=== PATIENT | female | born 1930 | race Caucasian/White ===

== ENCOUNTER → 2019-04-14 | Outpatient (CLI) | payer MEDICARE ==
[2019-04-14 18:24] LABS: BILIRUBIN,URINE NEGATIVE (NEGATIVE); CLARITY,URINE CLEAR; COLOR,URINE YELLOW; GLUCOSE, URINE (UA) NEGATIVE (NEGATIVE); KETONES,URINE NEGATIVE (NEGATIVE); LEUKOCYTE ESTERASE ,URINE 1+ (NEGATIVE); NITRITE,URINE NEGATIVE (NEGATIVE); PH,URINE 5.5 (5-9); PROTEIN,URINE NEGATIVE (NEGATIVE)
[2019-04-14 18:25] LABS: BACTERIA,URINE TRACE /HPF
== END ==
LOC: LAB FS 16:58
PROVIDERS: ATTEND Family Medicine
DX: R39.15 Urgency of urination (principal); R30.0 Dysuria; R35.0 Frequency of micturition
CPT/HCPCS: 81000; 87088

== ENCOUNTER 2019-10-19 16:02 | Observation (INO) | payer MEDICARE ==
[2019-10-19] MEDS ORDERED: ASPIRIN 325 MG (5 GR) TABLET PO ONE (16:15)
[2019-10-19 16:26] LABS: BASOPHILS % (AUTO) 0 % (0-10); EOSINOPHILS % (AUTO) 2 % (0-10); HEMATOCRIT 41 % (35-52); HEMOGLOBIN 13.9 G/DL (11.5-16.0); LYMPHOCYTES % (AUTO) 28 % (12-44); MEAN CORPUSCULAR HEMOGLOBIN 28 PG (25-34); MEAN CORPUSCULAR HGB CONC 34 G/DL (32-36); MEAN CORPUSCULAR VOLUME 82 FL (80-99); MEAN PLATELET VOLUME 10.8 FL (7.4-10.4); MONOCYTES % (AUTO) 8 % (0-12); NEUTROPHILS % (AUTO) 62 % (42-75); PLATELET COUNT 233 10^3/uL (130-400); WHITE BLOOD COUNT 9.3 10^3/uL (4.3-11.0)
[2019-10-19 16:27] LABS: EOSINOPHILS # (AUTO) 0.2 10^3/uL (0.0-0.3); LYMPHOCYTES # (AUTO) 2.6 X 10^3 (1.0-4.0); MONOCYTES # (AUTO) 0.7 X 10^3 (0.0-1.0); NEUTROPHILS # (AUTO) 5.7 X 10^3 (1.8-7.8)
[2019-10-19 16:47] LABS: FIBRIN DEGRADATION PRODUCTS 0.54 UG/ML (0.00-0.49); INR 0.9 (0.8-1.4); PROTHROMBIN TIME PATIENT 12.6 SEC (12.2-14.7)
[2019-10-19 17:03] LABS: ALANINE AMINOTRANSFERASE 22 U/L (0-55); ALBUMIN 3.9 GM/DL (3.2-4.5); ALKALINE PHOSPHATASE 123 U/L (40-136); BILIRUBIN,TOTAL 0.4 MG/DL (0.1-1.0); BUN/CREATININE RATIO 14; CALCIUM 9.5 MG/DL (8.5-10.1); CARBON DIOXIDE 26 MMOL/L (21-32); CHLORIDE 92 MMOL/L (98-107); CREATININE SERUM 1.25 MG/DL (0.60-1.30); GFR ESTIMATED 41; GLUCOSE 130 MG/DL (70-105); POTASSIUM 3.6 MMOL/L (3.6-5.0); SODIUM 133 MMOL/L (135-145); TOTAL PROTEIN 7.4 GM/DL (6.4-8.2)
[2019-10-19 17:04] LABS: LIPASE 59 U/L (8-78)
--- NOTE | 2019-10-19 17:08 | Diagnostic Imaging Report ---
EXAMINATION: Chest 1 view. HISTORY: Chest pain. COMPARISON: None available. FINDINGS: No focal consolidation is seen. No large pleural effusion or pneumothorax is seen. The cardiomediastinal silhouette is normal in size and contour. No acute osseous abnormality is seen. IMPRESSION: No acute pleuroparenchymal process. Dictated by: Dictated on workstation # [id number]
--- NOTE | 2019-10-19 18:37 | ED Chest Pain ---
General Chief Complaint: Chest Pain Stated Complaint: CHEST PAIN Nursing Triage Note: Has had several episodes of chest pain that started yesterday. Last pain was a couple of hours ago. Now feels like her whole body is "on fire." Nursing Sepsis Screen: No Definite Risk History of Present Illness Date Seen by Provider: Oct 19, 2019 Time Seen by Provider: 16:00 Initial Comments The patient is an 89-year-old female with a history of hypertension, hyperlipidemia, chronic vertigo, no known history of coronary artery disease. She presents for evaluation of chest discomfort with onset yesterday during the afternoon. Yesterday she reports she had a relatively transient episode of severe chest discomfort which was sharp and burning and localized underneath her bilateral breasts. She states this went away after about a half an hour at most. Pain was nonexertional and nonpleuritic and nothing seemed to bring it on or make it better or worse. Associated nausea. No associated fevers, upper respiratory congestion/rhinorrhea, cough, shortness of breath, abdominal pain, flank pain, back pain, dysuria or hematuria, changes in bowel habits. Patient had a recurrent episode of the same chest discomfort this afternoon and ending about 2 hours prior to arrival. At the present time she is chest pain- free. She does note a mild generalized skin "burning" sensation affecting her whole body that she states she had transiently yesterday as well. Patient reports that symptoms occur in the setting of having recently been switched from clindamycin (for what sounds like mild gingival infection after a right maxillary tooth extraction about a week ago) to cefdinir. Patient took only 2 doses of cefdinir yesterday and has not taken any today; she was concerned that it could've caused her chest pain so didn't take it today. Patient is alert and oriented and pleasantly and appropriately interactive and in no acute distress upon initial assessment. The emergency department. Vital signs are appropriate here. Allergies and Home Medications Allergies Coded Allergies: Iodinated Contrast Media (Verified Allergy, Unknown, 10/19/19) Penicillins (Verified Allergy, Unknown, 10/19/19) morphine (Verified Allergy, Unknown, 10/19/19) Patient Home Medication List Home Medication List Reviewed: Yes Review of Systems Review of Systems Constitutional: see HPI All Other Systems Reviewed Negative Unless Noted: Yes (Negative excepted noted.) Past Lvbhqvh-Rvuyss-Ayxxjx Hx Past Med/Social Hx: Reviewed Nursing Past Med/Soc Hx Patient Social History Recent Foreign Travel: No Contact w/Someone Who Travel: No Recent Infectious Disease Expo: No Family Medical History Reviewed Nursing Family Hx Physical Exam Vital Signs Vital Signs - First Documented 10/19/19 16:12 Temp 36.8 Pulse 78 Resp 18 B/P (MAP) 161/75 (103) Pulse Ox 96 Capillary Refill : Less Than 3 Seconds Height, Weight, BMI Height: '" Weight: lbs. oz. kg; BMI Method: General Appearance: No Apparent Distress Other comments This is an elderly female appearing nontoxic and in no acute distress. Head is normocephalic and atraumatic. Neck is supple and nontender. Oropharynx is moist. Lungs are clear to auscultation at all stations. There is a normal S1 and S2 without rubs or gallops and capillary refill is appropriate, less than 2 seconds globally. Abdomen is soft, nontender and nondistended. Skin is warm and dry without cyanosis, clubbing or edema. Psychiatrically, the patient Imitrex appropriate mood and affect and is alert. Neurologically, cranial nerves II through XII are intact and no lateralizing deficits are noted. Speech is normal. Language is normal. Coordination is normal. There is no dysmetria with finger to nose or mbcj-es-uojy bilaterally. Strength is 5 out of 5 in all joints of bilateral upper and lower extremity. Sensation is intact to light touch in bilateral upper and lower extremities. Ambulation testing is deferred. The patient is alert and oriented 4. The lateral lower extremities without calf pain or swelling bilaterally and without peripheral edema. Bilateral lower extremities are neurovascularly intact distally with strength 5 out of 5, sensation intact to light touch in all nerve distribution, DP and PT pulses 2+, capillary refill less than 2 seconds, feet warm and well-perfused. Ulcers are equal to bilateral upper and lower extremities. Progress/Results/Core Measures Results/Orders Lab Results Laboratory Tests Test 10/19/19 16:15 Range/Units White Blood Count 9.3 4.3-11.0 10^3/uL Red Blood Count 5.05 4.35-5.85 10^6/uL Hemoglobin 13.9 11.5-16.0 G/DL Hematocrit 41 35-52 % Mean Corpuscular Volume 82 80-99 FL Mean Corpuscular Hemoglobin 28 25-34 PG Mean Corpuscular Hemoglobin Concent 34 32-36 G/DL Red Cell Distribution Width 12.5 10.0-14.5 % Platelet Count 233 130-400 10^3/uL Mean Platelet Volume 10.8 H 7.4-10.4 FL Neutrophils (%) (Auto) 62 42-75 % Lymphocytes (%) (Auto) 28 12-44 % Monocytes (%) (Auto) 8 0-12 % Eosinophils (%) (Auto) 2 0-10 % Basophils (%) (Auto) 0 0-10 % Neutrophils # (Auto) 5.7 1.8-7.8 X 10^3 Lymphocytes # (Auto) 2.6 1.0-4.0 X 10^3 Monocytes # (Auto) 0.7 0.0-1.0 X 10^3 Eosinophils # (Auto) 0.2 0.0-0.3 10^3/uL Basophils # (Auto) 0.0 0.0-0.1 10^3/uL Prothrombin Time 12.6 12.2-14.7 SEC INR Comment 0.9 0.8-1.4 Activated Partial Thromboplast Time 24 24-35 SEC D-Dimer 0.54 H 0.00-0.49 UG/ML Sodium Level 133 L 135-145 MMOL/L Potassium Level 3.6 3.6-5.0 MMOL/L Chloride Level 92 L 98-107 MMOL/L Carbon Dioxide Level 26 21-32 MMOL/L Anion Gap 15 H 5-14 MMOL/L Blood Urea Nitrogen 17 7-18 MG/DL Creatinine 1.25 0.60-1.30 MG/DL Estimat Glomerular Filtration Rate 41 BUN/Creatinine Ratio 14 Glucose Level 130 H 70-105 MG/DL Calcium Level 9.5 8.5-10.1 MG/DL Corrected Calcium 9.6 8.5-10.1 MG/DL Total Bilirubin 0.4 0.1-1.0 MG/DL Aspartate Amino Transf (AST/SGOT) 29 5-34 U/L Alanine Aminotransferase (ALT/SGPT) 22 0-55 U/L Alkaline Phosphatase 123 40-136 U/L Troponin I < 0.30 <0.30 NG/ML Pro-B-Type Natriuretic Peptide 79.3 H <75.0 PG/ML Total Protein 7.4 6.4-8.2 GM/DL Albumin 3.9 3.2-4.5 GM/DL Lipase 59 8-78 U/L My Orders Orders - LASHAWN ELIAS MD Cbc With Automated Diff (10/19/19 16:14) Comprehensive Metabolic Panel (10/19/19 16:14) Lipase (10/19/19 16:14) Troponin I Fs (10/19/19 16:14) Ekg Tracing (10/19/19 16:14) Chest 1 View Ap/Pa Only (10/19/19 16:14) Protime With Inr (10/19/19 16:14) Partial Thromboplastin Time (10/19/19 16:14) Fibrin Degradation Products (10/19/19 16:14) Probnp Fs (10/19/19 16:14) Aspirin Tablet (Aspirin Tablet) (10/19/19 16:15) Vital Signs/I&O 10/19/19 16:12 Temp 36.8 Pulse 78 Resp 18 B/P (MAP) 161/75 (103) Pulse Ox 96 Blood Pressure Mean: 103 Progress Progress Note : Progress Note Workup unremarkable and reassuring aside from mildly elevated d-dimer. Patient has what is evidently a severe iodinated contrast allergy and cannot have a CT angiogram to rule out pulmonary embolism. Will need a V/Q scan during her admission. Given recurrent episodes of atypical rather severe chest discomfort over the last day, as well as prolonged QT interval noted on EKG, we'll bring in for observation, troponin trending, attention from cardiology and further care. Recommend avoiding QT prolonging therapies. Case is discussed with Dr. Zuniga who graciously accepts for observation admission. Stable for transfer. Comment Sinus rhythm, no acute ST elevation or depression, rate 81, OH 161, QRS 98, QTC 556, EP interpretation. Prolonged QT interval; unclear if this is acute. Diagnostic Imaging Comments CHEST 1 VIEW AP/PA ONLY EXAMINATION: Chest 1 view. HISTORY: Chest pain. COMPARISON: None available. FINDINGS: No focal consolidation is seen. No large pleural effusion or pneumothorax is seen. The cardiomediastinal silhouette is normal in size and contour. No acute osseous abnormality is seen. IMPRESSION: No acute pleuroparenchymal process. Dictated by: Dictated on workstation # [id number] Departure Impression Primary Impression: Other chest pain Additional Impressions: Elevated d-dimer Prolonged Q-T interval on ECG Disposition: ADMITTED INPATIENT Condition: Stable Departure-Patient Inst. Referrals: LOGAN HIGGINS MD (PCP/Family) Primary Care Physician LASHAWN ELIAS MD Oct 19, 2019 18:37
[2019-10-19] MEDS ORDERED: NS IV 1000 ML 1,000 ML IV SCH (18:59)
--- NOTE | 2019-10-19 19:46 | Diagnostic Imaging Report ---
PROCEDURE: CT head without contrast. TECHNIQUE: Multiple contiguous axial images were obtained through the brain without the use of intravenous contrast. Auto Exposure Controls were utilized during the CT exam to meet ALARA standards for radiation dose reduction. INDICATION: Paresthesia, near syncope. COMPARISON: None available. FINDINGS: No hyperdense hemorrhage or space-occupying mass. No hydrocephalus or midline shift. Akbar-white matter differentiation is well-preserved. Pituitary and pineal regions are normal in appearance. No skull fracture. Paranasal sinuses and mastoid air cells are clear. Bilateral cataract surgery. IMPRESSION: No acute intracranial process by CT. Dictated by: Dictated on workstation # [id number]
[2019-10-19 21:12] VITALS: BP 159/83
[2019-10-19] MEDS ORDERED: ACETAMINOPHEN 325 MG TABLET PO PRN (22:30)
[2019-10-19] MEDS ORDERED: diphenhydrAMINE 25 MG TAB (BENADRYL) PO ONE (23:09)
[2019-10-19] MEDS: ENOXAPARIN 40 MG/0.4 ML (LOVENOX) SYR SC SCH (23:11)
[2019-10-19] MEDS ORDERED: diphenhydrAMINE 25 MG TAB (BENADRYL) PO PRN (23:15)
[2019-10-20] VITALS (7 sets, daily range): BP systolic 119–159; BP diastolic 68–82
[2019-10-20 01:11] LABS: CLARITY,URINE CLEAR; COLOR,URINE YELLOW
[2019-10-20 01:12] LABS: BACTERIA,URINE TRACE /HPF; BILIRUBIN,URINE NE (NEGATIVE); GLUCOSE, URINE (UA) NEGATIVE (NEGATIVE); KETONES,URINE NEGATIVE (NEGATIVE); LEUKOCYTE ESTERASE ,URINE 1+ (NEGATIVE); NITRITE,URINE NEGATIVE (NEGATIVE); PROTEIN,URINE NEGATIVE (NEGATIVE); WBC,URINE 0-2 /HPF
[2019-10-20 03:32] LABS: BASOPHILS % (AUTO) 1 % (0-10); EOSINOPHILS # (AUTO) 0.3 10^3/uL (0.0-0.3); EOSINOPHILS % (AUTO) 4 % (0-10); HEMATOCRIT 37 % (35-52); HEMOGLOBIN 12.4 G/DL (11.5-16.0); LYMPHOCYTES # (AUTO) 3.1 X 10^3 (1.0-4.0); LYMPHOCYTES % (AUTO) 36 % (12-44); MEAN CORPUSCULAR HEMOGLOBIN 28 PG (25-34); MEAN CORPUSCULAR HGB CONC 34 G/DL (32-36); MEAN CORPUSCULAR VOLUME 82 FL (80-99); MEAN PLATELET VOLUME 10.7 FL (7.4-10.4); MONOCYTES # (AUTO) 0.8 X 10^3 (0.0-1.0); MONOCYTES % (AUTO) 9 % (0-12); NEUTROPHILS # (AUTO) 4.4 X 10^3 (1.8-7.8); NEUTROPHILS % (AUTO) 51 % (42-75); PLATELET COUNT 225 10^3/uL (130-400); WHITE BLOOD COUNT 8.7 10^3/uL (4.3-11.0)
[2019-10-20 03:41] LABS: ALBUMIN 3.2 GM/DL (3.2-4.5); CHLORIDE 95 MMOL/L (98-107); POTASSIUM 3.3 MMOL/L (3.6-5.0); SODIUM 130 MMOL/L (135-145)
[2019-10-20 03:42] LABS: CALCIUM 8.4 MG/DL (8.5-10.1)
[2019-10-20 03:43] LABS: GLUCOSE 106 MG/DL (70-105); TOTAL PROTEIN 6.1 GM/DL (6.4-8.2)
[2019-10-20 03:45] LABS: BILIRUBIN,TOTAL 0.6 MG/DL (0.1-1.0); CARBON DIOXIDE 25 MMOL/L (21-32)
[2019-10-20 03:47] LABS: ALKALINE PHOSPHATASE 86 U/L (40-136); CREATININE SERUM 1.05 MG/DL (0.60-1.30); GFR ESTIMATED 50
[2019-10-20 03:48] LABS: BUN/CREATININE RATIO 13
[2019-10-20 03:50] LABS: ALANINE AMINOTRANSFERASE 19 U/L (0-55)
--- NOTE | 2019-10-20 08:59 | Diagnostic Imaging Report ---
INDICATION: Chest pain. Comparison made with chest x-ray from 10/19/2019. TECHNIQUE: Acquisitions were acquired of the lungs after administration of 5.13 mCi of technetium 99m MAA. FINDINGS: There is homogeneous uptake of isotope throughout the lungs. There are no subsegmental or segmental perfusion defects appreciated to suggest pulmonary embolism. IMPRESSION: Low probability for pulmonary embolism. Dictated by: Dictated on workstation # [id number]
[2019-10-20] MEDS: MICONAZOLE 2% POWDER (DESENEX AF) 90 GM TOP SCH ×2 (10:07→23:25)
--- NOTE | 2019-10-20 10:44 | History & Physical-Hospitalist ---
History of Present Illness HPI/Chief Complaint CC: Chest pain with dyspnea and elevated d-dimer HPI: This is an 89yoWF Assisted living patient of Dr Neal who presented to the [facility] ER with chest pain and dyspnea and was found to have elevated d-dimer in need of cardiac risk assessment. VQ scan performed to r/o PE due to iodine allergy was negative this morning. She reports she"moore all over her body" and reports a 15 year struggle with vertigo after she fainted and was sent to for a full cardiac w/u and vertigo was the dx. Patient reports she has feeling "stressed" since moving into [place] 03/2019 while her who had a CVA moved into [facility]. 2 weeks ago she had a tooth problem which required 2 rounds of abx and has felt badly since that time. Coming to the hospital has been the first time she has left the facility due to lockdown for 5 months. Source: patient, RN/MD Exam Limitations: clinical condition Date Seen 10/20/19 Time Seen by a Provider: 11:00 Attending Physician Eli Zuniga MD PCP Annalisa Neal MD Referring Physician Date of Admission Oct 19, 2019 at 20:45 Home Medications & Allergies Home Medications Reviewed patient Home Medication Reconciliation performed by pharmacy medication reconciliations regulatory and compliance technician and/or nursing. Patients Allergies have been reviewed. Allergies Allergies Coded Allergies Iodinated Contrast Media (Verified Allergy, Unknown, 10/19/19) Penicillins (Verified Allergy, Unknown, 10/19/19) morphine (Verified Allergy, Unknown, 10/19/19) Past Bikyvjq-Emwjax-Srtqnc Hx Past Med/Social Hx: Reviewed Nursing Past Med/Soc Hx, Reviewed and Corrections made Patient Social History Marrital Status: Employed/Student: retired Alcohol Use: Denies Use Recreational Drug Use: No Smoking Status: Never a Smoker 2nd Hand Smoke Exposure: No Recent Foreign Travel: No Contact w/other who traveled: No Recent Infectious Disease Expo: No Past Medical History Cardiac: High Cholesterol, Hypertension chronic vertigo 15 yrs OAB Musculoskeletal: Arthritis Family History Reviewed Nursing Family Hx Review of Systems Constitutional: see HPI, dizziness, malaise, weakness Cardiovascular: chest pain Skin: other (burning) Physical Exam Physical Exam Vital Signs Vital Signs - First Documented 10/19/19 10/19/19 16:12 21:12 Temp 36.8 Pulse 78 Resp 18 B/P (MAP) 161/75 (103) Pulse Ox 96 O2 Delivery Room Air Capillary Refill : Less Than 3 SecondsLess Than 3 Seconds Height, Weight, BMI Height: '" Weight: lbs. oz. kg; BMI Method: General Appearance: No Apparent Distress, WD/WN, Chronically ill Eyes: Right Eye Normal Inspection, Right Eye PERRL HEENT: PERRL/EOMI, Normal ENT Inspection, Pharynx Normal, Moist Mucous Membranes Neck: Full Range of Motion, Normal Inspection, Non Tender Respiratory: Chest Non Tender, Lungs Clear, Normal Breath Sounds, No Accessory Muscle Use, No Respiratory Distress Cardiovascular: Regular Rate, Rhythm, No Edema, No Gallop, No JVD, No Murmur, Normal Peripheral Pulses Gastrointestinal: Normal Bowel Sounds, No Organomegaly, No Pulsatile Mass, Non Tender, Soft Back: Normal Inspection, No CVA Tenderness, No Vertebral Tenderness Extremity: Normal Capillary Refill, Normal Inspection, Normal Range of Motion, Non Tender, No Calf Tenderness, No Pedal Edema Neurologic/Psychiatric: Alert, Oriented x3, No Motor/Sensory Deficits, Normal Mood/Affect Skin: Normal Color, Warm/Dry Lymphatic: No Adenopathy Results Results/Procedures Labs Laboratory Tests 10/19/19 16:15 10/20/19 03:20 Patient resulted labs reviewed. Assessment/Plan Admission Diagnosis Assessment: Chest pain normal troponins Elevated d-dimer with dyspnea but VQ scan negative for PE 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 HTN HLP Generalized weakness with "burning all over her body" Plan: Supportive care PT OT Cardiology appreciated Admission Status: Observation Diagnosis/Problems Diagnosis/Problems (1) Dyspnea (2) Elevated d-dimer Status: Acute (3) Other chest pain Status: Acute (4) Prolonged Q-T interval on ECG Status: Acute Clinical Quality Measures DVT/VTE Risk/Contraindication: Risk Factor Score Per Nursin RFS Level Per Nursing on Admit: 3=High JEN OCAMPO DO Oct 20, 2019 10:43
[2019-10-20] MEDS ORDERED: CALCIUM CARBONATE 500 MG (TUMS) TAB.CHEW PO PRN (12:45)
[2019-10-20] MEDS ORDERED: OXYB5TAB13 PO (12:45)
[2019-10-20] MEDS ORDERED: SUMA50TA2 PO (12:45)
[2019-10-20] MEDS ORDERED: APAP 300 MG/CODEINE 30 MG (TYLENOL #3) TAB PO PRN (12:45)
[2019-10-20] MEDS ORDERED: DOCUSATE SODIUM 100 MG (COLACE) CAP PO PRN (12:45)
[2019-10-20] MEDS ORDERED: MECLIZINE 25 MG (ANTIVERT) TAB PO PRN (12:45)
[2019-10-20] MEDS ORDERED: HYDROcodone/APAP 5 MG/325 MG (LORTAB) TAB PO PRN (12:45)
[2019-10-20] MEDS ORDERED: BISACODYL 10 MG SUPP (DULCOLAX) PR PRN (12:45)
[2019-10-20] MEDS ORDERED: DIAZ5TAB49 PO (12:45)
[2019-10-20] MEDS ORDERED: ONDANSETRON 4 MG/2 ML (SDV) Z0FRAN IVP PRN (12:45)
[2019-10-20] MEDS ORDERED: MELATONIN 3 MG TABLET PO PRN (12:45)
[2019-10-20] MEDS ORDERED: ALPRAZolam 0.25 MG (XANAX) TAB PO PRN (12:45)
[2019-10-20] MEDS ORDERED: ONDANSETRON 4 MG (ZOFRAN) ORAL DISSOLVE TAB PO PRN (12:45)
[2019-10-20] MEDS ORDERED: DICY10CA12 PO (12:45)
[2019-10-20] MEDS ORDERED: ATOR40TA70 PO (12:45)
--- NOTE | 2019-10-20 12:55 | NUR ---
DR LACY NOTIFIED THIS NURSE PT CAN GO TO THE FOURTH FLOOR. ALSO, PT WILL GET A STRESS TEST TOMORROW. THIS NURSE NOTIFIED HOUSE SUPP.
[2019-10-20] MEDS ORDERED: DICYCLOMINE 10 MG (BENTYL) CAP PO PRN (13:00)
[2019-10-20] MEDS ORDERED: SUMAtriptan 50 MG (IMITREX) TAB PO PRN (13:00)
--- NOTE | 2019-10-20 13:51 | Physical Therapy Evaluation ---
PT Evaluation-General Medical Diagnosis Admission Date Oct 19, 2019 at 20:45 Medical Diagnosis: chest pain Onset Date: Oct 17, 2019 Therapy Diagnosis Therapy Diagnosis: impaired mobility, endurance, strength, balance Precautions Precautions/Isolations: Fall Prevention, Standard Precautions Referral Physician: Dang Hinds Medical History Pertinent Medical History: CAD, HTN Additional Medical History hyperlipidemia, chronic vertigo Social History Home: Assisted Living Current Living Status: Alone Prior Prior Level of Function SCALE: Activities may be completed with or without assistive devices. 5-Mlychnaeff-maivsth completes the activity by him/herself with no assistance from a helper. 5-Set-up or Clean-up Assistance-helper sets up or cleans up; patient completes activity. [place] assists only prior to or following the activity. 4-Supervision or Touching Assistance-helper provides verbal cues and/or touching/steadying and/or contact guard assistance as patient completes activity. Assistance may be provided throughout the activity or intermittently. 3-Partial/Moderate Assistance-helper does LESS THAN HALF the effort. [place] lifts, holds or supports trunk or limbs, but provides less than half the effort. 2-Substantial/Maximal Assistance-helper does MORE THAN HALF the effort. [place] lifts or holds trunk or limbs and provides more than half the effort. 7-Squpgvnhd-ugnwyd does ALL the effort. Patient does none of the effort to complete the activity. Or, the assistance of 2 or more helpers is required for the patient to complete the activity. If activity was not attempted, code reason: 7-Patient Refused. 9-Not Applicable-not attempted and the patient did not perform the activity before the current illness, exacerbation or injury. 10-Not Attempted due to Environmental Limitations-(lack of equipment, weather restraints, etc.). 88-Not Attempted due to Medical Conditions or Safety Concerns. Bed Mobility: 6 Transfers (B,C,W/C): 6 Gait: 6 Indoor Mobility (Ambulation): Independent Patient has chronic vertigo, has had it for years but has gotten worse lately and she has been using a rolling walker due to this. PT Evaluation-Current Subjective Patient in bed pre tx, agrees to PT, has no pain but states she has "burning" all over her body. Patient has chronic vertigo and has had it for years but it has gotten worse lately. Pt/Family Goals to be independent at home Objective Patient Orientation: Person, Place, Situation ROM/Strength ROM Lower Extremities WNL except slightly limited knee extension bilaterally Strength Lower Extremities LLE (hip flexion 3-/5, knee flexion 4/5, knee extension 3+/5, dorsiflexion 3/5), RLE (hip flexion 3-/5, knee flexion 4/5, knee extension 3+/5, dorsiflexion 4/5) Sensory Hearing: Functional Sensation Right Lower Extremit: Intact Sensation Left Lower Extremity: Intact Transfers Roll Left to Right (QC): 6 Sit to Lying (QC): 6 Lying to Sitting/Side of Bed(Q: 6 Sit to Stand (QC): 4 Patient has increased dizziness with supine to sit and sit to stand. After sitting for about 30 seconds she can stand. She stood for about 30 seconds and tried to take a step forward but states she cant do it because of her vertigo and needs to sit back down. Patient then layed back down and performed supine exercises. Balance Sitting Static: Normal Sitting Dynamic: Normal Standing Static: Fair Treatment supine BLE exercises x20 (AP, QS, HS), patient instructed to perform these exercises several times a day. Assessment/Needs Patient has impaired mobility, strength, endurance, balance. she was not able to ambulate due to her vertigo Rehab Potential: Guarded PT [facility] Goals [facility] Goals PT [facility] Goals Time Frame: Oct 27, 2019 Roll Left & Right (QC): 6 Sit to Lying (QC): 6 Lying-Sitting on Side/Bed(QC): 6 Sit to Stand (QC): 6 Chair/Mxl-fx-Ywfcm Xfer(QC): 6 Toilet Transfer (QC): 6 Walk 10 feet (QC): 4 Walk 50ft with 2 Turns (QC): 4 PT Plan Problem List Problem List: Activity Tolerance, Functional Strength, Safety, Balance, Gait, Transfer, Bed Mobility Treatment/Plan Treatment Plan: Continue Plan of Care Treatment Plan: Bed Mobility, Education, Functional Activity Pasquale, Functional Strength, Gait, Safety, Therapeutic Exercise, Transfers Treatment Duration: Oct 27, 2019 Frequency: 6 times per week Estimated Hrs Per Day: .25 hour per day Patient and/or Family Agrees t: Yes Safety Risks/Education Patient Education: Transfer Techniques, Correct Positioning, Safety Issues Teaching Recipient: Patient Teaching Methods: Demonstration, Discussion Response to Teaching: Reinforcement Needed Discharge Recommendations Plan Patient will perform bed mobility and transfer training, balance and endurance training, functional strengthening, gait training, and education to improve functional mobility and independence at home. Therapy Discharge Recommendati: Assisted Living, Home & Family Time/GCodes Time In: 1323 Time Out: 1340 Total Billed Treatment Time: 17 Total Billed Treatment 1 visit LY 17' ADRIANA MACHADO PT Oct 20, 2019 13:51
[2019-10-20] MEDS: DIAZEPAM 5 MG (VALIUM) TABLET PO SCH ×2 (13:54→20:13)
[2019-10-20] MEDS ORDERED: ASPI-999 PO (14:22)
[2019-10-20] MEDS ORDERED: CALC500T47 PO (14:33)
[2019-10-20] MEDS ORDERED: MAGN100T5 PO (14:33)
[2019-10-20] MEDS ORDERED: HYDR50TA3 PO (14:42)
[2019-10-20] MEDS ORDERED: ONDN4T PO (14:57)
[2019-10-20] MEDS ORDERED: POTA20TA15 PO (14:57)
[2019-10-20] MEDS ORDERED: ZINC50TA51 PO (14:57)
[2019-10-20] MEDS ORDERED: OMEP20CA18 PO (14:57)
--- NOTE | 2019-10-20 15:00 | Consultation-Cardiology ---
HPI-Cardiology Cardiology Consultation: Date of Consultation 10/20/19 Date of Admission Attending Physician Eli Zuniga MD Admitting Physician Annalisa Neal MD Consulting Physician Dl TURNER MD HPI: Time Seen by a Provider: 12:30 Chief Complaint: Chest discomfort This is a 89-year-old lady with history of hypertension, hyperlipidemia. No other known medical or cardiac history. She presents with chest pain. Initially she had severe chest pain with burning sensation. Lasted for 30 minutes. Associated with nausea but no vomiting. Has been having recurrent episodes of burning sensation/chest discomfort. She denies active smoking. Mother had a stroke, father had congestive heart failure. Review of Systems-Cardiology Review of Systems Constitutional: As described under HPI; No As described under HPI, No no symptoms reported, No chills, No fever, No lightheadedness Eyes: No As described under HPI, No no symptoms reported, No blindness, No blurred vision, No contact lenses, No drainage, No decreased acuity, No foreign body sensation, No pain, No vision change Ears/Nose/Throat: No As described under HPI, No no symptoms reported, No chronic hearing loss, No ear discharge, No ear pain, No nasal drainage, No ulcerations Respiratory: No no symptoms reported; As described under HPI; No As described under HPI, No cough, No orthopnea, No shortness of breath, No SOB with excertion Cardiovascular: No no symptoms reported; As described under HPI; No As desc ribed under HPI; chest pain; No edema, No irregular heart rate, No lightheadedness, No palpitations Gastrointestinal: No no symptoms reported, No As described under HPI, No abdomen distended, No abdominal pain, No blood streaked bowels, No constipation, No diarrhea, No nausea, No vomiting, No stool coloration changes Genitourinary: No As described under HPI, No burning, No dysuria, No discharge, No frequency, No flank pain, No hematuria, No urgency : Yes : No Skin: No rash, No skin related problems, No ulcerations Psychiatric/Neurological: No anxiety, No depression, No seizure, No focal weakness, No syncope Hematologic: No bleeding abnormalities All Other Systems Reviewed Negative Unless Noted: Yes (Negative excepted noted.) OMC-Ligwjm-Fozedx Hx Patient Social History Alcohol Use: Denies Use Recreational Drug Use: No Smoking Status: Never a Smoker 2nd Hand Smoke Exposure: No Recent Foreign Travel: No Recent Infectious Disease Expo: No Past Medical History PMH As described under Assessment. Allergies and Home Medications Allergies Coded Allergies: Iodinated Contrast Media (Verified Allergy, Unknown, 10/19/19) Penicillins (Verified Allergy, Unknown, 10/19/19) morphine (Verified Allergy, Unknown, 10/19/19) Home Medications Aspirin 81 Mg Tab.chew, 81 MG PO BID, (Reported) Atorvastatin Calcium 40 Mg Tablet, 40 MG PO DAILY, (Reported) Calcium Carbonate 200 Mg Tab.chew, 200 MG PO PRN, (Reported) Diazepam 5 Mg Tablet, 5 MG PO Q6H, (Reported) Dicyclomine HCl 10 Mg Capsule, 10 MG PO TID PRN for CRAMPS, (Reported) Hydrochlorothiazide 50 Mg Tablet, 75 MG PO DAILY, (Reported) Magnesium Amino Acid Chelate 100 Mg Tablet, 200 MG PO DAILY, (Reported) Ondansetron HCl 4 Mg Tab, 4 MG PO DAILY PRN for NAUSEA/VOMITING, (Reported) Oxybutynin Chloride 5 Mg Tablet, 5 MG PO DAILY, (Reported) Potassium Chloride 20 Meq Tab.er.prt, 20 MEQ PO DAILY, (Reported) Sumatriptan Succinate 50 Mg Tablet, 50 MG PO DAILY PRN for headache, (Reported) Patient Home Medication List Home Medication List Reviewed: Yes Physical Exam-Cardiology Physical Exam Vital Signs/I&O 10/20/19 10/20/19 10/20/19 10/20/19 04:00 04:00 07:00 07:31 Temp 36.4 36.2 Pulse 65 72 69 Resp 19 18 B/P (MAP) 128/81 (97) 119/68 (85) Pulse Ox 95 95 96 O2 Delivery Room Air Room Air Room Air 10/20/19 10/20/19 10/20/19 10/20/19 08:00 09:19 11:27 11:28 Temp 36.4 Pulse 67 Resp 18 B/P (MAP) 154/82 (106) Pulse Ox 96 O2 Delivery Room Air Room Air Room Air Room Air 10/20/19 13:02 Pulse 73 10/20/19 00:00 Intake Total 100 ml Output Total 0 ml Balance 100 ml Capillary Refill : Less Than 3 SecondsLess Than 3 Seconds Constitutional: appears stated age, AAO x 3; No apparent distress; well- developed, well-nourished HEENT: PERRL; No discharge; hearing is well preserved, oral hygience is good; No ulceration, No xanthelasmas are seen Neck: No carotid bruit; carotid pulses are 2 + bilaterally Respiratory: chest is bilaterally symmetric, lungs clear to auscultation Cardiovascular: regular rate-rhythm, S1 and S2; No diastolic murmur, No syst olic murmur Gastrointestinal: soft, audible bowel sounds; No spleenomegaly Rectal: deferred Extremities: normal range of motion, non-tender, normal inspection; No clubbing, No cyanosis; no lower extremity edema bilateral; No significant edema Neurologic/Psychiatric: no motor/sensory deficits, alert, normal mood/affect, oriented x 3, power is 5/5 both on sides Skin: normal color, warm/dry; No rash, No ulcerations Data Review Labs Laboratory Tests 10/19/19 16:15: White Blood Count 9.3, Red Blood Count 5.05, Hemoglobin 13.9, Hematocrit 41, Mean Corpuscular Volume 82, Mean Corpuscular Hemoglobin 28, Mean Corpuscular Hemoglobin Concent 34, Red Cell Distribution Width 12.5, Platelet Count 233, Mean Platelet Volume 10.8H, Neutrophils (%) (Auto) 62, Lymphocytes (%) (Auto) 28, Monocytes (%) (Auto) 8, Eosinophils (%) (Auto) 2, Basophils (%) (Auto) 0, Neutrophils # (Auto) 5.7, Lymphocytes # (Auto) 2.6, Monocytes # (Auto) 0.7, Eosinophils # (Auto) 0.2, Basophils # (Auto) 0.0, Prothrombin Time 12.6, INR Comment 0.9, Activated Partial Thromboplast Time 24, D-Dimer 0.54H, Sodium Level 133L, Potassium Level 3.6, Chloride Level 92L, Carbon Dioxide Level 26, Anion Gap 15H, Blood Urea Nitrogen 17, Creatinine 1.25, Estimat Glomerular Filtration Rate 41, BUN/Creatinine Ratio 14, Glucose Level 130H, Calcium Level 9.5, Corrected Calcium 9.6, Total Bilirubin 0.4, Aspartate Amino Transf (AST/SGOT) 29, Alanine Aminotransferase (ALT/SGPT) 22, Alkaline Phosphatase 123, Troponin I < 0.30, Pro-B-Type Natriuretic Peptide 79.3H, Total Protein 7.4, Albumin 3.9, Lipase 59 10/19/19 22:21: Troponin I < 0.028 10/19/19 23:25: Urine Color YELLOW, Urine Clarity CLEAR, Urine pH 6.0, Urine Specific [place] 1.010L, Urine Protein NEGATIVE, Urine Glucose (UA) NEGATIVE, Urine Ketones NEGATIVE, Urine Nitrite NEGATIVE, Urine Bilirubin NE, Urine Urobilinogen 0.2, Urine Leukocyte Esterase 1+H, Urine RBC (Auto) NEGATIVE, Urine RBC NONE, Urine WBC 0-2, Urine Squamous Epithelial Cells 5-10, Urine Crystals NONE, Urine Bacteria TRACE, Urine Casts NONE, Urine Mucus NEGATIVE, Urine Culture Indicated NO 10/20/19 03:20: White Blood Count 8.7, Red Blood Count 4.51, Hemoglobin 12.4, Hematocrit 37, Mean Corpuscular Volume 82, Mean Corpuscular Hemoglobin 28, Mean Corpuscular Hemoglobin Concent 34, Red Cell Distribution Width 12.5, Platelet Count 225, Mean Platelet Volume 10.7H, Neutrophils (%) (Auto) 51, Lymphocytes (%) (Auto) 36, Monocytes (%) (Auto) 9, Eosinophils (%) (Auto) 4, Basophils (%) (Auto) 1, Neutrophils # (Auto) 4.4, Lymphocytes # (Auto) 3.1, Monocytes # (Auto) 0.8, Eosinophils # (Auto) 0.3, Basophils # (Auto) 0.0, Sodium Level 130L, Potassium Level 3.3L, Chloride Level 95L, Carbon Dioxide Level 25, Anion Gap 10, Blood Urea Nitrogen 14, Creatinine 1.05, Estimat Glomerular Filtration Rate 50, BUN/Creatinine Ratio 13, Glucose Level 106H, Calcium Level 8.4L, Corrected Calcium 9.0, Total Bilirubin 0.6, Aspartate Amino Transf (AST/SGOT) 24, Alanine Aminotransferase (ALT/SGPT) 19, Alkaline Phosphatase 86, Troponin I < 0.028, Total Protein 6.1L, Albumin 3.2 10/20/19 10:53: Troponin I < 0.028 A/P-Cardiology Assessment/Admission Diagnosis Chest pain, Hypertension, Hyperlipidemia Plan Chest pain, will request echocardiogram. Serial troponin are negative. EKG is negative. Nuclear stress test tomorrow morning. Hypertension: Continue outpatient medical therapy. Hyperlipidemia, continue atorvastatin. Thank you for your consultation. Please call me if you have any questions. Seth Turner MD, FACP, FACC, FSCAI, FHRS, CCDS Interventional Cardiology Cardiac Electrophysiology Vascular Medicine and Endovascular Interventions Clinical Quality Measures DVT/VTE Risk/Contraindication: Risk Factor Score Per Nursin RFS Level Per Nursing on Admit: 3=High Dl TURNER MD Oct 20, 2019 15:00
--- NOTE | 2019-10-20 17:45 | NUR ---
THIS NURSE CALLED REPORT TO ZACK SAMAYOA. PT TAKEN DOWN VIA WHEELCHAIR WITH BELONGINGS.
--- NOTE | 2019-10-20 17:45 | NUR ---
This RN assumed patient care at this time. patient alert and orientated resting in bed, daughter at bedside, verbalizes no needs at this time
[2019-10-20] MEDS: SENNA W/DOCUSATE (SENOKOT S) TABLET PO SCH (20:13)
[2019-10-20] MEDS: ENOXAPARIN 40 MG/0.4 ML (LOVENOX) SYR SC SCH (20:13)
[2019-10-21 01:00] VITALS: BP 118/59
[2019-10-21] MEDS: DIAZEPAM 5 MG (VALIUM) TABLET PO SCH ×5 (01:00→18:47)
--- NOTE | 2019-10-21 03:29 | NUR ---
HEARD LAUGHING AND TALKING COMING FROM PT ROOM. WALKED IN TO PT BEDSIDE, PT EYES CLOSED BUT LAUGHING AND TOLD ME "LOOK AT HIM OVER THERE JUST PAINTING THE GRASS, ISN'T THAT FUNNY". PUT UP 4TH SIDE RAIL AND SET BED ALARM DUE FOR ADDITIONAL SAFETY/FALL RISK.
[2019-10-21 04:30] VITALS: BP 112/53
[2019-10-21 05:31] LABS: BASOPHILS % (AUTO) 0 % (0-10); EOSINOPHILS # (AUTO) 0.3 10^3/uL (0.0-0.3); EOSINOPHILS % (AUTO) 4 % (0-10); HEMATOCRIT 38 % (35-52); LYMPHOCYTES # (AUTO) 2.5 X 10^3 (1.0-4.0); LYMPHOCYTES % (AUTO) 34 % (12-44); MEAN CORPUSCULAR HEMOGLOBIN 28 PG (25-34); MEAN CORPUSCULAR HGB CONC 34 G/DL (32-36); MEAN CORPUSCULAR VOLUME 82 FL (80-99); MEAN PLATELET VOLUME 10.7 FL (7.4-10.4); MONOCYTES # (AUTO) 0.8 X 10^3 (0.0-1.0); MONOCYTES % (AUTO) 11 % (0-12); NEUTROPHILS # (AUTO) 3.8 X 10^3 (1.8-7.8); NEUTROPHILS % (AUTO) 52 % (42-75); PLATELET COUNT 228 10^3/uL (130-400); WHITE BLOOD COUNT 7.4 10^3/uL (4.3-11.0)
[2019-10-21 05:38] LABS: ALBUMIN 3.3 GM/DL (3.2-4.5)
[2019-10-21 05:40] LABS: CALCIUM 8.5 MG/DL (8.5-10.1)
[2019-10-21 05:41] LABS: TOTAL PROTEIN 6.4 GM/DL (6.4-8.2)
[2019-10-21 05:43] LABS: BILIRUBIN,TOTAL 0.4 MG/DL (0.1-1.0)
[2019-10-21 05:45] LABS: CREATININE SERUM 1.11 MG/DL (0.60-1.30)
[2019-10-21 08:00] VITALS: BP 120/57
--- NOTE | 2019-10-21 09:57 | Progress Note - Hospitalist ---
Subjective HPI/CC On Admission Date Seen by Provider: Oct 21, 2019 Time Seen by Provider: 09:00 CC: Chest pain with dyspnea and elevated d-dimer HPI: This is an 89yoWF Assisted living patient of Dr Neal who presented to the [facility] ER with chest pain and dyspnea and was found to have elevated d-dimer in need of cardiac risk assessment. VQ scan performed to r/o PE due to iodine allergy was negative this morning. She reports she"moore all over her body" and reports a 15 year struggle with vertigo after she fainted and was sent to for a full cardiac w/u and vertigo was the dx. Patient reports she has feeling "stre ssed" since moving into [place] 03/2019 while her who had a CVA moved into [facility]. 2 weeks ago she had a tooth problem which required 2 rounds of abx and has felt badly since that time. Coming to the hospital has been the first time she has left the facility due to lockdown for 5 months. Subjective/Events-last exam Pt getting ready for stress test PT and OT will continue to work with her Having Vertigo issues that she has for 15 years Asked for an Imodium because of loose stools Burning in her feet and all over her body does occur still I updated her on the fact that I would not likely have the final answer for her but once her heart test is back and its normal we will look for skilled care or PT and OT back to assisted living Review of Systems General: Fatigue, Malaise Gastrointestinal: Diarrhea Neurological: Weakness Objective Exam Vital Signs Vital Signs Date Time Temp Pulse Resp B/P (MAP) Pulse Ox O2 Delivery O2 Flow Rate FiO2 10/21/19 19:09 36.6 79 16 125/58 (80) 98 Room Air Capillary Refill : Less Than 3 SecondsLess Than 3 Seconds General Appearance: No Apparent Distress, WD/WN HEENT: PERRL/EOMI, TMs Normal, Normal ENT Inspection, Pharynx Normal, Moist Mucous Membranes Neck: Full Range of Motion, Normal Inspection, Non Tender, Supple, Carotid Bruit Respiratory: Chest Non Tender, Lungs Clear, Normal Breath Sounds, No Accessory Muscle Use, No Respiratory Distress Cardiovascular: Regular Rate, Rhythm, No Edema, No Gallop, No JVD, No Murmur, Normal Peripheral Pulses Gastrointestinal: Normal Bowel Sounds, No Organomegaly, No Pulsatile Mass, Non Tender, Soft Back: Normal Inspection, No CVA Tenderness, No Vertebral Tenderness Extremity: Normal Capillary Refill, Normal Inspection, Normal Range of Motion, Non Tender, No Calf Tenderness, No Pedal Edema Neurologic/Psychiatric: Alert, Oriented x3, No Motor/Sensory Deficits, Normal Mood/Affect Skin: Normal Color, Warm/Dry Lymphatic: No Adenopathy Results/Procedures Lab Laboratory Tests 10/21/19 05:08 10/21/19 05:17 Patient resulted labs reviewed. Assessment/Plan Assessment and Plan Assess & Plan/Chief Complaint Assessment: Chest pain normal troponins Elevated d-dimer with dyspnea but VQ scan negative for PE 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 HTN HLP Generalized weakness with "burning all over her body" Plan: Supportive care PT OT Cardiology appreciated 10/21/19: Stress test today Appreciate cardiology May need skilled care Diagnosis/Problems Diagnosis/Problems (1) Dyspnea (2) Elevated d-dimer Status: Acute (3) Other chest pain Status: Acute (4) Prolonged Q-T interval on ECG Status: Acute Clinical Quality Measures DVT/VTE Risk/Contraindication: Risk Factor Score Per Nursin RFS Level Per Nursing on Admit: 3=High JEN OCAMPO DO Oct 21, 2019 09:57
--- NOTE | 2019-10-21 10:17 | Occupational Therapy Eval ---
OT Evaluation-General/PLF Medical Diagnosis Admission Date Oct 19, 2019 at 20:45 Medical Diagnosis: chest pain Onset Date: Oct 17, 2019 Therapy Diagnosis Therapy Diagnosis: Weakness/dizziness Precautions Precautions/Isolations: Fall Prevention, Standard Precautions Weight Bear Status Weight Bearing Restriction: Weight Bearing/Tolerated Referral Physician: Dang Hinds Referral Reason: Activity Tolerance, Self Care, Evaluation/Treatment, Strengthening/ROM Medical History Pertinent Medical History: CAD, HTN Additional Medical History High Cholesterol, Chronic Vertigo, Chronic migraine headaches Current History Pt. states that he spouse had a stroke at [facility], and was then transferred to a [place] in [place]. Pt. reports that she has had severe vertigo for years now, and it was becoming increasingly difficult for her to be home on her own. She moved into an Assisted Living Facility in [facility]. Her vertigo became worse this last week, and she began having chest pain and dyspnea. An ambulance was called and pt. brought to hospital. Multiple tests and testing being conducted to determine if there are any cardiac issues. Reviewed History: Yes Social History Home: Assisted Living Current Living Status: Alone Entry Into Home: Level Entry ADL-Prior Level of Function SCALE: Activities may be completed with or without assistive devices. 0-Prubmioewh-syczdxw completes the activity by him/herself with no assistance from a helper. 5-Set-up or Clean-up Assistance-helper sets up or cleans up; patient completes activity. [place] assists only prior to or following the activity. 4-Supervision or Touching Assistance-helper provides verbal cues and/or touching/steadying and/or contact guard assistance as patient completes activity. Assistance may be provided throughout the activity or intermittently. 3-Partial/Moderate Assistance-helper does LESS THAN HALF the effort. [place] lifts, holds or supports trunk or limbs, but provides less than half the effort. 2-Substantial/Maximal Assistance-helper does MORE THAN HALF the effort. [place] lifts or holds trunk or limbs and provides more than half the effort. 3-Qccbuxftm-iswzfi does ALL the effort. Patient does none of the effort to complete the activity. Or, the assistance of 2 or more helpers is required for the patient to complete the activity. If activity was not attempted, code reason: 7-Patient Refused. 9-Not Applicable-not attempted and the patient did not perform the activity before the current illness, exacerbation or injury. 10-Not Attempted due to Environmental Limitations-(lack of equipment, weather restraints, etc.). 88-Not Attempted due to Medical Conditions or Safety Concerns. ADL PLOF Comments Pt. reports that until recently, she was independent with daily skills. She uses a rolling walker, and will sit multiple times during ambulation if needed, if her vertigo is bad. Self Care: Needed Some Help Functional Cognition: Independent DME/Equipment: Bath Chair, Shower DME/Equipment Comments Rolling walker with seat. OT Current Status Subjective No pain reported. Pt. does report dizziness with movement. Mental Status/Objective Patient Orientation: Person, Place, Time, Situation Current Upper Extremity ROM WFL Upper Extremity Strength WFL ADL-Treatment Eating (QC): 6 (Pt. NPO today because she is awaiting stress test, but otherwise reports having no problems.) Oral Hygiene (QC): 5 (Pt. already brushed teeth with nursing set up.) Shower/Bathe Self (QC): 4 (Pt. completed prior to OT coming in room with nursing SBA.) On/Off Footwear (QC): 4 Other Treatments Pt. had completed all ADLs. Waiting for stress test, but okay to work with OT. Transferred supine-sit with Mod I. Pt. sat on side of bed and reported no dizziness from vertigo. Stood at walker with SBA. Pt. stood approximately 7 minutes at bedside, and then began reporting some dizziness from vertigo. Transferred back to bed with SBA. Pt. states that laying down makes her feel better. Pt. states that she is unsure of why she has had vertigo for so long. All needs are met. Education OT Patient Education: Correct positioning, Modified ADL techniques, Progress toward Goal/Update tx plan, Purpose of tx/functional activities, Reviewed precautions, Rehab process, Transfer techniques Teaching Recipient: Patient Teaching Methods: Demonstration, Discussion Response to Teaching: Verbalize Understanding, Return Demonstration OT Chcf Goals Chcf Goals Time Frame: Oct 28, 2019 Eating (QC): 6 Oral Hygiene (QC): 6 Toileting Hygiene (QC): 6 Shower/Bathe Self (QC): 5 Upper Body Dressing (QC): 6 Lower Body Dressing (QC): 6 On/Off Footwear (QC): 6 Additional Goals: 1-Demonstrate ADL Tasks, 2-Verbalize Understanding, 3- ImproveStrength/Pasquale 1=Demonstrate adherence to instructed precautions during ADL tasks. 2=Patient will verbalize/demonstrate understanding of assistive devices/modifications for ADL. 3=Patient will improve strength/tolerance for activity to enable patient to perform ADL's. OT Education/Plan Problem List/Assessment Assessment: Decreased Activ Tolerance, Impaired Funct Balance, Impaired I ADL's, Impaired Self-Care Skills Due to vertigo Discharge Recommendations Plan/Recommendations: Continue POC Therapy Discharge Recommendati: Home & Family Treatment Plan/Plan of Care Treatment,Training & Education: Yes Patient would benefit from OT for education, treatment and training to promote independence in ADL's, mobility, safety and/or upper extremity function for ADL's. Plan of Care: ADL Retraining, Functional Mobility, UE Funct Exercise/Act Treatment Duration: Oct 28, 2019 Frequency: 5 times per week Estimated Hrs Per Day: .5 hour per day Agreement: Yes Rehab Potential: Good Time/GCodes Start Time: 08:35 Stop Time: 09:00 Total Time Billed (hr/min): 25 Billed Treatment Time 1, EVL x 10minutes, FA x 15minutes CLARITZA ERNANDEZ OT Oct 21, 2019 10:17
[2019-10-21] MEDS: MICONAZOLE 2% POWDER (DESENEX AF) 90 GM TOP SCH ×2 (10:31→20:15)
[2019-10-21] MEDS ORDERED: NYST1000 PO (11:51)
--- NOTE | 2019-10-21 11:52 | NUR ---
THE MED REC WAS ENTERED USING THE PHYSICIANS ORDERS FROM [facility]- I ALSO CALLED [facility] TO GET CLARIFICATION ON MEDS THAT DIDNT HAVE DIRECTIONS
[2019-10-21 12:00] VITALS: BP 180/81
[2019-10-21] MEDS ORDERED: REGADENOSON 0.4 MG/5 ML SYR (LEXISCAN) IV ONE ×2 (12:07→12:30)
[2019-10-21] MEDS: SENNA W/DOCUSATE (SENOKOT S) TABLET PO SCH ×2 (13:33→20:13)
[2019-10-21] MEDS: OXYBUTYNIN (DITROPAN) 5 MG TAB PO SCH (13:43)
--- NOTE | 2019-10-21 14:26 | Physical Therapy Daily Note ---
PT Daily Note-Current Subjective Patient c/o dizziness from chronic vertigo. Reports had nuclear stress test on this date. Mental Status Patient Orientation: Person, Time, Situation Transfers SCALE: Activities may be completed with or without assistive devices. 7-Scgcrxmbpu-bfcdqte completes the activity by him/herself with no assistance from a helper. 5-Set-up or Clean-up Assistance-helper sets up or cleans up; patient completes activity. [place] assists only prior to or following the activity. 4-Supervision or Touching Assistance-helper provides verbal cues and/or touching/steadying and/or contact guard assistance as patient completes activity. Assistance may be provided throughout the activity or intermittently. 3-Partial/Moderate Assistance-helper does LESS THAN HALF the effort. [place] lifts, holds or supports trunk or limbs, but provides less than half the effort. 2-Substantial/Maximal Assistance-helper does MORE THAN HALF the effort. [place] lifts or holds trunk or limbs and provides more than half the effort. 4-Pnjotnzkh-vwkahz does ALL the effort. Patient does none of the effort to complete the activity. Or, the assistance of 2 or more helpers is required for the patient to complete the activity. If activity was not attempted, code reason: 7-Patient Refused. 9-Not Applicable-not attempted and the patient did not perform the activity before the current illness, exacerbation or injury. 10-Not Attempted due to Environmental Limitations-(lack of equipment, weather restraints, etc.). 88-Not Attempted due to Medical Conditions or Safety Concerns. Roll Left & Right (QC): 5 Sit to Lying (QC): 5 Lying to Sitting/Side of Bed(Q: 5 Sit to Stand (QC): 5 Gait Training Does the Patient Walk?: Yes Distance: 10' x 2 Walk 10 feet (QC): 4 Gait Assistive Device: FWW Exercises Seated Therapy Exercises: Ankle pumps, Long arc quads Seated Reps: 15 Assessment Patient reports she is going back to [place] today and is very anxious. Patient to continue to increase activity as tolerated. PT Manager Science Goals Prison Goals PT Prison Goals Time Frame: Oct 27, 2019 Roll Left & Right (QC): 6 Sit to Lying (QC): 6 Lying-Sitting on Side/Bed(QC): 6 Sit to Stand (QC): 6 Chair/Rol-kf-Jemuq Xfer(QC): 6 Toilet Transfer (QC): 6 Walk 10 feet (QC): 4 Walk 50ft with 2 Turns (QC): 4 PT Plan Treatment/Plan Treatment Plan: Continue Plan of Care Treatment Plan: Bed Mobility, Education, Functional Activity Pasquale, Functional Strength, Gait, Safety, Therapeutic Exercise, Transfers Treatment Duration: Oct 27, 2019 Frequency: 6 times per week Estimated Hrs Per Day: .25 hour per day Patient and/or Family Agrees t: Yes Time/GCodes Time In: 1400 Time Out: 1414 Total Billed Treatment Time: 14 Total Billed Treatment 1 visit FA 14min RUY KU PT Oct 21, 2019 14:26
--- NOTE | 2019-10-21 14:52 | Cardiology Progress Note ---
Cardiology SOAP Progress Note Subjective: No cardiac complaints. Objective: I&O/Vital Signs 10/21/19 10/21/19 10/21/19 10/21/19 04:29 04:30 06:41 08:00 Temp 36.4 36.2 Pulse 62 77 72 Resp 16 14 B/P (MAP) 112/53 (72) 120/57 (78) Pulse Ox 93 95 O2 Delivery Room Air Room Air Room Air 10/21/19 10/21/19 10/21/19 10/21/19 08:00 09:00 12:00 12:35 Pulse 89 O2 Delivery Room Air Room Air Room Air 10/21/19 00:00 Intake Total 830 ml Balance 830 ml Constitutional: appears stated age, AAO x 3; No apparent distress; well- developed, well-nourished Respiratory: chest is bilaterally symmetric, lungs clear to auscultation Cardiovascular: regular rate-rhythm, S1 and S2; No diastolic murmur, No systolic murmur Gastrointestional: soft, audible bowel sounds; No spleenomegaly Extremities: normal range of motion, non-tender, normal inspection; No clubbing, No cyanosis; no lower extremity edema bilateral; No significant edema Neurologic/Psychiatric: no motor/sensory deficits, alert, normal mood/affect, oriented x 3, power is 5/5 both on sides Skin: normal color, warm/dry; No rash, No ulcerations Results/Procedures: Labs Laboratory Tests 10/21/19 05:08: White Blood Count 7.4, Red Blood Count 4.68, Hemoglobin 13.0, Hematocrit 38, Mean Corpuscular Volume 82, Mean Corpuscular Hemoglobin 28, Mean Corpuscular Hemoglobin Concent 34, Red Cell Distribution Width 12.8, Platelet Count 228, Mean Platelet Volume 10.7H, Neutrophils (%) (Auto) 52, Lymphocytes (%) (Auto) 34, Monocytes (%) (Auto) 11, Eosinophils (%) (Auto) 4, Basophils (%) (Auto) 0, Neutrophils # (Auto) 3.8, Lymphocytes # (Auto) 2.5, Monocytes # (Auto) 0.8, Eosinophils # (Auto) 0.3, Basophils # (Auto) 0.0 10/21/19 05:17: Sodium Level 131L, Potassium Level 3.0L, Chloride Level 94L, Carbon Dioxide Level 27, Anion Gap 10, Blood Urea Nitrogen 14, Creatinine 1.11, Estimat Glomerular Filtration Rate 46, BUN/Creatinine Ratio 13, Glucose Level 111H, Calcium Level 8.5, Corrected Calcium 9.1, Total Bilirubin 0.4, Aspartate Amino Transf (AST/SGOT) 24, Alanine Aminotransferase (ALT/SGPT) 18, Alkaline Phosphatase 99, Total Protein 6.4, Albumin 3.3 A/P: Assessment/Dx: Chest pain, Hypertension, Hyperlipidemia Plan: Chest pain, Serial troponin are negative. EKG is negative. Nuclear stress test done today shows no ischemia or infarct. Echocardiogram showed normal LV function. Patient can be discharged to follow-up with outpatient seamstress fitter. Hypertension: Continue outpatient medical therapy. Hyperlipidemia, continue atorvastatin. Thank you for your consultation. Please call me if you have any questions. Seth Turner MD, FACP, FACC, FSCAI, FHRS, CCDS Interventional Cardiology Cardiac Electrophysiology Vascular Medicine and Endovascular Interventions Dl TURNER MD Oct 21, 2019 14:52
--- NOTE | 2019-10-21 14:52 | Cardiology Stress Test Report ---
Stress Test Report Type of NM Stress Test: Test Type: LEXISCAN 0.4MG/5ML Date of Procedure/Referring: Date of Procedure: Oct 21, 2019 PCP Eli Zuniga MD Admitting Physician Annalisa Neal MD Indications: chest pain Baseline Blood Pressure: Blood Pressure Systolic: 120 Blood Pressure Diastolic: 57 Summary & Conclusion: Summary: The patient was brought to the stress lab after informed consent was taken. Stress test was performed according to the Lexiscan protocol. 0.4 mg of IV Lexiscan was given. Low-grade exercise was performed. Baseline EKG showed sinus rhythm at BPM. Initial blood pressure was mmHg. Maximum heart rate was bpm and blood pressure mmHg. Patient did not have any chest pain, arrhythmias or ST segment changes during the stress test. mCi of Myoview were given for rest imaging and mCi of Myoview given for stress imaging. Transient ischemic dilatation score , EF percent. Normal wall motion. Normal myocardial perfusion imaging during rest and stress. Conclusion: Pharmacological stress test was negative for ischemia. Normal LV function with no wall motion abnormalities. Normal myocardial perfusion imaging during rest and stress. Dl LACY MD Oct 21, 2019 14:52
[2019-10-21] MEDS: LOPERAMIDE 2 MG (IMODIUM) TABLET PO NR ×2 (15:01→15:42)
[2019-10-21 15:16] VITALS: BP 137/66
--- NOTE | 2019-10-21 15:27 | NUR ---
BRENDA/MANJU visited with patient for discharge planning. Plan: Patient will return home to [facility] tomorrow 10/21. [facility]: BRENDA/MANJU contacted facility to discuss discharge. A message was left with call back number. BRENDA/MANJU visited with patient. She reports that she is not feeling well, and did not have a "good reaction" to her nuclear test. The patient informed this sw of the complications and medical issues she has been dealing with prior to hospitalization. BRENDA/MANJU discussed discharge to [facility] and the possibility of home health or outpatient PT to help build strengths. The patient states that she feels ready and good with going back to the [facility]. They provide her with the care needed. She reports that home health is able to go into the building but the patient denies need. She states that she would not be able to work with them and doesn't see the point. BRENDA/MANJU spoke with patient's nurse to give an update. She verbalized understanding. BRENDA/MANJU will continue to follow.
[2019-10-21 19:09] VITALS: BP 125/58
[2019-10-21] MEDS: ENOXAPARIN 40 MG/0.4 ML (LOVENOX) SYR SC SCH (20:13)
[2019-10-22 00:10] VITALS: BP 138/63
[2019-10-22] MEDS: DIAZEPAM 5 MG (VALIUM) TABLET PO SCH ×2 (01:16→06:55)
[2019-10-22 04:24] VITALS: BP 114/55
[2019-10-22 08:00] VITALS: BP 139/65
[2019-10-22] MEDS: OXYBUTYNIN (DITROPAN) 5 MG TAB PO SCH (09:06)
[2019-10-22] MEDS: MICONAZOLE 2% POWDER (DESENEX AF) 90 GM TOP SCH (09:06)
[2019-10-22] MEDS: SENNA W/DOCUSATE (SENOKOT S) TABLET PO SCH (09:06)
[2019-10-22] MEDS ORDERED: KCL 20 MEQ TAB (K-DUR) PO ONE (09:10)
[2019-10-22] MEDS ORDERED: KCL 20 MEQ TAB (K-DUR) PO NR (09:15)
--- NOTE | 2019-10-22 09:45 | Discharge Summary ---
Discharge Summary Hospital Course Was the Problem List Reviewed?: Yes Problems/Dx: (1) Dyspnea (2) Elevated d-dimer Status: Acute (3) Other chest pain Status: Acute (4) Prolonged Q-T interval on ECG Status: Acute Hospital Course Date of Admission: Oct 19, 2019 at 20:45 Admission Diagnosis : Family Physician/Provider: Annalisa Neal MD Date of Discharge: 10/22/19 Discharge Diagnosis: Chest pain with negative EST, Acute on chronic pain and disability from vertigo and fibromyalgia, hypokalemia Hospital Course: Hospital course: Pt had an uneventful hospital course, longer than expected when she was admitted for chest pain, elevated D-dimer, stress test was normal, cardiology cleared to go home but she had many somatic complaints with chronic vertigo, and burning all over her body that I was unable to pin-point exactly what was causing that, so I recommended Dr. Neal follow-up of which I did update her and I did replace her potassium and will need close follow-up along with PT at assisted-living. Labs and Pending Lab Test: Laboratory Tests 10/22/19 05:05: Triglycerides Level 70, Cholesterol Level 137, LDL Cholesterol Direct 62, VLDL Cholesterol 14, HDL Cholesterol 59, Thyroid Stimulating Hormone (TSH) 2.29 Home Meds Active Reported Nystatin 100,000 Unit/1 Ml Oral.susp 5 Ml PO QID SWISH AND SWALLOW USE FOR 7 DAYS STARTING ON 10-13-2019 Zofran (Ondansetron HCl) 4 Mg Tab 4 Mg PO DAILY PRN Zinc (Zinc Amino Acid Chelate) 50 Mg Tablet 50 Mg PO DAILY Potassium Chloride 20 Meq Tab.er.prt 20 Meq PO DAILY Omeprazole 20 Mg Capsule.dr 20 Mg PO DAILY Hydrochlorothiazide 50 Mg Tablet 75 Mg PO DAILY TAKES 1 & (50MG) TABS Magnesium (Magnesium Amino Acid Chelate) 100 Mg Tablet 200 Mg PO DAILY Calcium Carbonate 200 Mg Tab.chew 200 Mg PO PRN Aspirin 81 Mg Tab.chew 81 Mg PO BID Sumatriptan Succinate 50 Mg Tablet 50 Mg PO UD PRN MDD 100MG TAKES 50MG NEEDED AND MAY TAKE 50MG AFTER 2 HOURS IF NO MIGRAINE RELIEF Dicyclomine HCl 10 Mg Capsule 10 Mg PO TID PRN Atorvastatin Calcium 40 Mg Tablet 40 Mg PO DAILY Oxybutynin Chloride 5 Mg Tablet 5 Mg PO TID PRN Diazepam 5 Mg Tablet 5 Mg PO TID PRN Assessment/Pt Instructions DR Neal in 1 week Discharge Planning: <30 minutes discharge planning Discharge Instructions Discharge Diet: No Restrictions Discharge Physical Examination Vital Signs Vital Signs Date Time Temp Pulse Resp B/P (MAP) Pulse Ox O2 Delivery O2 Flow Rate FiO2 10/22/19 08:00 36.0 70 20 139/65 (89) 98 Room Air General Appearance: No Apparent Distress, WD/WN, Chronically ill Respiratory: Lungs Clear Cardiovascular: Regular Rate, Rhythm Allergies: Coded Allergies: Iodinated Contrast Media (Verified Allergy, Unknown, 10/19/19) Penicillins (Verified Allergy, Unknown, 10/19/19) morphine (Verified Allergy, Unknown, 10/19/19) Discharge Summary Date of Admission Oct 19, 2019 at 20:45 Date of Discharge Discharge Date: Oct 22, 2019 Admission Diagnosis Assessment: Chest pain normal troponins Elevated d-dimer with dyspnea but VQ scan negative for PE 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 HTN HLP Generalized weakness with "burning all over her body" Plan: Supportive care PT OT Cardiology appreciated Discharge Diagnosis Assessment: Chest pain normal troponins Elevated d-dimer with dyspnea but VQ scan negative for PE 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
--- NOTE | 2019-10-22 09:52 | Cardiology Progress Note ---
Subjective Date Seen by Provider: Oct 22, 2019 Time Seen by Provider: 09:48 Subjective/Events-last exam Patient is sitting up in bed, denies any further episode of chest pain or dy spnea. No complaints at this time. Objective-Cardiology Exam Last Set of Vital Signs Vital Signs 10/22/19 08:00 Temp 36.0 Pulse 70 Resp 20 B/P (MAP) 139/65 (89) Pulse Ox 98 O2 Delivery Room Air Capillary Refill : Less Than 3 SecondsLess Than 3 Seconds I&O Intake and Output 10/22/19 00:00 Intake Total 1045 ml Output Total 1 ml Balance 1044 ml Intake Oral 1045 ml Emesis 1 ml # Voids 4 General: Alert, Oriented X3, Cooperative HEENT: Atraumatic, PERRLA Neck: Supple, No JVD, No Thyromegaly Lungs: Clear to Auscultation, Normal Air Movement Heart: Regular Rate, Normal S1, Normal S2, No Murmurs Abdomen: Normal Bowel Sounds, Soft, No Tenderness, No Hepatosplenomegaly, No Masses Extremities: No Clubbing, No Cyanosis, No Edema, Normal Pulses, No Tenderness/Swelling Skin: No Rashes, No Breakdown, No Significant Lesion Neuro: Normal Gait, Normal Speech, Strength at 5/5 X4 Ext, Normal Tone, Sensation Intact Psych/Mental Status: Mental Status NL, Mood NL A/P-Cardiology Admission Diagnosis Chest pain HTN HLP Assessment/Plan Chest pain, Serial troponin are negative. EKG is negative. Nuclear stress test done yesterday shows no ischemia or infarct. Echocardiogram showed normal LV function. Patient can be discharged to follow-up with outpatient explosive operator supervisor. Hypertension, controlled, continue to monitor. Hyperlipidemia, continue atorvastatin. Vertigo, maintained on meclizine. OK to discharge from cardiology standpoint. Clinical Quality Measures DVT/VTE Risk/Contraindication: Risk Factor Score Per Nursin RFS Level Per Nursing on Admit: 3=High KARI MCKOY Oct 22, 2019 09:52
--- NOTE | 2019-10-22 10:56 | NUR ---
BRENDA/MANJU finalized discharge. Plan: Patient will return to [facility] today 10/21 with outpatient physical therapy. The facility will transport patient. [facility]: BRENDA/MANJU visited with Sherly at the facility to inform them of patient's discharge today. She verbalized understanding. BRENDA/MANJU faxed clinical and discharge order with outpatient physical therapy script. The patient denies any further needs at this time.
[2019-10-22] MEDS ORDERED: LOPERAMIDE 2 MG (IMODIUM) TABLET ONE (11:12)
[2019-10-22 12:00] VITALS: BP 139/65
== END 2019-10-22 12:05 ==
LOC: EDUNIT# 16:02 → ER FS 16:03 → CSD 20:45 → 4TH 10-20 17:45
PROVIDERS: ADMIT Family Medicine; ATTEND Family Medicine
DX: R07.89 Other chest pain (principal); I11.9 Hypertensive heart disease without heart failure; I35.1 Nonrheumatic aortic (valve) insufficiency; E78.00 Pure hypercholesterolemia, unspecified; E87.6 Hypokalemia; E78.5 Hyperlipidemia, unspecified; R42 Dizziness and giddiness; N32.81 Overactive bladder; R79.1 Abnormal coagulation profile; Z79.82 Long term (current) use of aspirin; Z79.899 Other long term (current) drug therapy; Z88.0 Allergy status to penicillin; Z88.5 Allergy status to narcotic agent; Z91.041 Radiographic dye allergy status
CPT/HCPCS: 36415; 70450; 71045; 78452; 78580; 80053 ×3; 80061; 81000; 83690; 83880; 84443; 84484 ×3; 85025 ×3; 85379; 85610; 85730; 93005; 93017; 93306; 97162; 97165; 97530 ×2; 99284; A9502; A9540; G0378

== ENCOUNTER → 2020-02-23 | Outpatient (CLI) | payer MEDICARE ==
[~2020-02-23] MED LIST: ASPI-999 PO; ATOR40TA70 PO; CALC500T47 PO; DIAZ5TAB49 PO; DICY10CA12 PO; HYDR50TA3 PO; MAGN100T5 PO; NYST1000 PO; OMEP20CA18 PO; ONDN4T PO; OXYB5TAB13 PO; POTA20TA15 PO; SUMA50TA2 PO; ZINC50TA51 PO
[2020-02-23 16:09] LABS: BILIRUBIN,URINE NEGATIVE (NEGATIVE); CLARITY,URINE SL CLOUDY; COLOR,URINE YELLOW; GLUCOSE, URINE (UA) NEGATIVE (NEGATIVE); KETONES,URINE NEGATIVE (NEGATIVE); LEUKOCYTE ESTERASE ,URINE 2+ (NEGATIVE); NITRITE,URINE NEGATIVE (NEGATIVE); PH,URINE 7.5 (5-9); PROTEIN,URINE NEGATIVE (NEGATIVE)
[2020-02-23 16:10] LABS: BACTERIA,URINE LARGE /HPF; SQUAMOUS EPITHELIAL CELL,UR >50 /HPF; WBC,URINE 25-50 /HPF
== END ==
LOC: LAB FS 15:50
PROVIDERS: ATTEND Family Medicine
DX: R30.0 Dysuria (principal)
CPT/HCPCS: 81000; 87088

== ENCOUNTER → 2020-04-14 | Outpatient (CLI) | payer MEDICARE ==
[~2020-04-14] MED LIST changes: -HYDR50TA3 PO; +HYDR50TA6 PO
[2020-04-14 02:08] LABS: CLARITY,URINE SL CLOUDY; COLOR,URINE YELLOW; GLUCOSE, URINE (UA) NEGATIVE (NEGATIVE); KETONES,URINE NEGATIVE (NEGATIVE); NITRITE,URINE POSITIVE (NEGATIVE); PROTEIN,URINE NEGATIVE (NEGATIVE)
[2020-04-14 02:09] LABS: BACTERIA,URINE LARGE /HPF; BILIRUBIN,URINE NEGATIVE (NEGATIVE); LEUKOCYTE ESTERASE ,URINE 2+ (NEGATIVE); RBC,URINE 0-2 /HPF; WBC,URINE 25-50 /HPF
== END ==
LOC: LAB 00:31
PROVIDERS: ATTEND Family Medicine
DX: R35.0 Frequency of micturition (principal)
CPT/HCPCS: 81000; 87077; 87088

== ENCOUNTER → 2020-06-03 | Outpatient (CLI) | payer MEDICARE ==
[2020-06-03 17:11] LABS: CLARITY,URINE CLOUDY; COLOR,URINE DK YELLOW; GLUCOSE, URINE (UA) NEGATIVE (NEGATIVE); KETONES,URINE TRACE (NEGATIVE); NITRITE,URINE NEGATIVE (NEGATIVE); PH,URINE 7.5 (5-9); PROTEIN,URINE NEGATIVE (NEGATIVE)
[2020-06-03 17:12] LABS: BACTERIA,URINE LARGE /HPF; BILIRUBIN,URINE 1+ (NEGATIVE); LEUKOCYTE ESTERASE ,URINE 3+ (NEGATIVE); WBC,URINE 25-50 /HPF
== END ==
LOC: PVFS 16:34
PROVIDERS: ATTEND Family Medicine
DX: R35.0 Frequency of micturition (principal); R82.998 Other abnormal findings in urine
CPT/HCPCS: 81000; 87077; 87088; 87186

== ENCOUNTER → 2020-06-17 | Outpatient (CLI) | payer MEDICARE ==
--- NOTE | 2020-06-17 14:09 | Diagnostic Imaging Report ---
INDICATION: Chest and sternal pain PA and lateral views of the chest obtained with comparison made to study of 10/19/2019. Overall heart size and pulmonary vascularity are within normal limits. There is air trapping, bilaterally. There does appear to be slight increase in right infrahilar atelectasis or pneumonitis. No consolidation or significant pleural fluid is seen. IMPRESSION: Background emphysema with slight increase in right infrahilar atelectasis and/or pneumonitis. Dictated by: Dictated on workstation # [id number]
== END ==
LOC: RAD FS 13:20
PROVIDERS: ATTEND Family Medicine
DX: J43.9 Emphysema, unspecified (principal); W19.XXXA Unspecified fall, initial encounter
CPT/HCPCS: 71046

== ENCOUNTER → 2020-06-30 | Outpatient (CLI) | payer MEDICARE ==
[2020-06-30 16:02] LABS: CLARITY,URINE SLIGHTLY CLOUDY; COLOR,URINE DARK YELLOW; GLUCOSE, URINE (UA) NEGATIVE (NEGATIVE); KETONES,URINE NEGATIVE (NEGATIVE); NITRITE,URINE NEGATIVE (NEGATIVE); PH,URINE 5.5 (5-9); PROTEIN,URINE NEGATIVE (NEGATIVE)
[2020-06-30 16:03] LABS: BACTERIA,URINE FEW /HPF; BILIRUBIN,URINE 1+ (NEGATIVE); LEUKOCYTE ESTERASE ,URINE 2+ (NEGATIVE); RBC,URINE 0-2 /HPF; WBC,URINE 25-50 /HPF
== END ==
LOC: PVFS 15:42
PROVIDERS: ATTEND Family Medicine
DX: R82.998 Other abnormal findings in urine (principal)
CPT/HCPCS: 81000; 87088

== ENCOUNTER → 2020-07-06 | Outpatient (CLI) | payer MEDICARE | LOC: LABNPT 15:11 | PROVIDERS: ATTEND Family Medicine | DX: N39.0 Urinary tract infection, site not specified (principal); L29.3 Anogenital pruritus, unspecified | CPT/HCPCS: 87088; 87210 ==

== ENCOUNTER 2020-10-08 01:41 | Emergency (ER) | payer MEDICARE ==
[~2020-10-08] VITALS: Ht 162.5 cm; Wt 31.7 kg
[2020-10-08 01:41] VITALS: BP 145/71
--- NOTE | 2020-10-08 01:50 | ED Hip Pain/Injury ---
General Stated Complaint: FALL History of Present Illness Date Seen by Provider: Oct 08, 2020 Time Seen by Provider: 01:47 Initial Comments 89-year-old female presents with right hip/groin pain. Patient reports that she fell around 9 PM. That she was able to get up and ambulate on it. That when she got up just a little bit ago to go the restroom she was still able ambulate but had seemingly more pain especially in the groin area. She reports that she can move her leg but has some pain. She denies any other injury from her fall. Allergies and Home Medications Allergies Coded Allergies: Iodinated Contrast Media (Verified Allergy, Unknown, 10/19/19) Penicillins (Verified Allergy, Unknown, 10/19/19) morphine (Verified Allergy, Unknown, 10/19/19) Home Medications Aspirin 81 Mg Tab.chew, 81 MG PO BID, (Reported) Atorvastatin Calcium 40 Mg Tablet, 40 MG PO DAILY, (Reported) Calcium Carbonate 200 Mg Tab.chew, 200 MG PO PRN, (Reported) Diazepam 5 Mg Tablet, 5 MG PO TID PRN for VERTIGO, (Reported) Dicyclomine HCl 10 Mg Capsule, 10 MG PO TID PRN for CRAMPS, (Reported) Hydrochlorothiazide 50 Mg Tablet, 75 MG PO DAILY, (Reported) TAKES 1 & (50MG) TABS Hydrocodone/Acetaminophen 1 Each Tablet, 1 TAB PO Q8H PRN for PAIN-MODERATE (5- 7) 1/2 to 1 pill every 6-8 hours as needed for pain. Please start with one half a pill Prescribed by: IWONA DIANE on 10/08/20220 Magnesium Amino Acid Chelate 100 Mg Tablet, 200 MG PO DAILY, (Reported) Nystatin 100,000 Unit/1 Ml Oral.susp, 5 ML PO QID, (Reported) SWISH AND SWALLOW USE FOR 7 DAYS STARTING ON 10-13-2019 Omeprazole 20 Mg Capsule.dr, 20 MG PO DAILY, (Reported) Ondansetron HCl 4 Mg Tab, 4 MG PO DAILY PRN for NAUSEA/VOMITING, (Reported) Oxybutynin Chloride 5 Mg Tablet, 5 MG PO TID PRN for INCONTIENCE, (Reported) Potassium Chloride 20 Meq Tab.er.prt, 20 MEQ PO DAILY, (Reported) Sumatriptan Succinate 50 Mg Tablet, 50 MG PO UD PRN for MIGRAINE, (Reported) TAKES 50MG NEEDED AND MAY TAKE 50MG AFTER 2 HOURS IF NO MIGRAINE RELIEF Zinc Amino Acid Chelate 50 Mg Tablet, 50 MG PO DAILY, (Reported) Patient Home Medication List Home Medication List Reviewed: Yes Review of Systems Constitutional: no symptoms reported Respiratory: no symptoms reported Cardiovascular: no symptoms reported Gastrointestinal: no symptoms reported Musculoskeletal: see HPI Skin: no symptoms reported Psychiatric/Neurological: No Symptoms Reported Past Kgbatff-Nngdaf-Uaaf[facility] Hx Past Medical History Cardiac: Yes High Cholesterol, Hypertension Neurological: No Genitourinary: Yes (dysphagia) Gastrointestinal: Yes (benign neoplasm of colon) Arthritis Endocrine: No HEENT: No Integumentary: Yes (yeast under breasts) Physical Exam Vital Signs Vital Signs - First Documented 10/08/20 01:41 Temp 36.9 Pulse 93 Resp 18 B/P (MAP) 145/71 (95) Pulse Ox 96 O2 Delivery Room Air Capillary Refill : Height, Weight, BMI Height: '" Weight: lbs. oz. kg; BMI Method: General Appearance: No Apparent Distress, WD/WN Neck: Normal Inspection, Non Tender, Supple Cardiovascular: Regular Rate, Rhythm, No Edema Respiratory: Lungs Clear, Normal Breath Sounds Extremity: Normal Capillary Refill, Other (Patient with mild tenderness on the right groin, she does have full range of motion. Mild tenderness to lateral right thigh.) Neurologic/Psychiatric: Normal Mood/Affect, psychometrist II-XII Norm as Tested Skin: Normal Color, Warm/Dry Progress/Results/Core Measures Results/Orders My Orders Orders - IWONA DIANE DO Pelvis With Right Hip 2-3 View (10/08/20 01:46) Vital Signs/I&O 10/08/20 01:41 Temp 36.9 Pulse 93 Resp 18 B/P (MAP) 145/71 (95) Pulse Ox 96 O2 Delivery Room Air Progress Progress Note : Progress Note Patient is x-ray shows a ischium fracture. Discussed with her bearing as tolerated, she will be discharged back to the residential with Lortab for pain control. She is to follow-up outpatient with Rasheed Shah for further outpatient management. Diagnostic Imaging Diagonstic Imaging: Xray Plain Films/CT/US/NM/MRI: other Comments Fracture right ischium Reviewed: Reviewed by Me Departure Impression Primary Impression: Fracture of ischium, right, closed Qualified Codes: S32.691A - Other specified fracture of right ischium, initial encounter for closed fracture Disposition: HOME, SELF-CARE Condition: Stable Departure-Patient Inst. Referrals: LOGAN HIGGINS MD (PCP/Family) Primary Care Physician JONAH SHAH Patient Instructions: Pelvic Fracture Add. Discharge Instructions: Follow-up with Rasheed Shah for outpatient management Weightbearing as tolerated Scripts Hydrocodone/Acetaminophen (Hydrocodone-Acetamin 5-325 mg) 1 Each Tablet 1 TAB PO Q8H PRN for PAIN-MODERATE (5-7), #10 TAB 1/2 to 1 pill every 6-8 hours as needed for pain. Please start with one half a pill Prov: IWONA DIANE DO 10/08/20 IWONA DIANE DO Oct 08, 2020 01:50
[2020-10-08] MEDS ORDERED: ACHD5005 PO (02:21)
--- NOTE | 2020-10-08 06:08 | Diagnostic Imaging Report ---
INDICATION: Fall, right hip pain COMPARISON: None FINDINGS: Single view of the pelvis and two views of the right hip demonstrate [id number] degenerative joint disease. There is no fracture or dislocation. 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 SI joints are symmetric. IMPRESSION: No acute fracture or dislocation. Dictated by: Dictated on workstation # [id number]
== END 2020-10-08 03:11 | disposition home or self-care (01) ==
LOC: EDUNIT# 01:41 → ER FS 01:44
DX: S32.691A Other specified fracture of right ischium, initial encounter for closed fracture (principal); I10 Essential (primary) hypertension; E78.00 Pure hypercholesterolemia, unspecified; Z79.82 Long term (current) use of aspirin; Z79.899 Other long term (current) drug therapy; W19.XXXA Unspecified fall, initial encounter
CPT/HCPCS: 73502

== ENCOUNTER → 2020-10-21 | Outpatient (CLI) | payer MEDICARE ==
[~2020-10-21] MED LIST changes: +ACHD5005 PO
--- NOTE | 2020-10-21 15:49 | Diagnostic Imaging Report ---
INDICATION: Fall, right hip pain, left hip arthroplasty. COMPARISON: 10/08/2020. EXAMINATION: Single view of the pelvis demonstrates a lucency involving the right pubis compatible with a nondisplaced fracture. Questionable inferior pubic ramus fracture is seen on the right. There is mild degenerative joint disease of the right hip. The visualized left hip arthroplasty is intact. IMPRESSION: Nondisplaced right pubis fracture with questionable nondisplaced fracture of the inferior pubic ramus on the right. Dictated by: Dictated on workstation # [id number]
--- NOTE | 2020-10-21 15:57 | Diagnostic Imaging Report ---
INDICATION: Fall, pain. COMPARISON: Study compared with radiograph 10/08/2020. FINDINGS: There is new irregularity of the inferior ramus as well as parasymphyseal right pubic bone fracture. No significant displacement. The femoral neck and head are intact. The acetabulum appeared intact. 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 Dictated by: Dictated on workstation # [id number]
== END ==
LOC: RAD FS 13:44
PROVIDERS: ATTEND Nurse Practitioner
DX: S32.501A Unspecified fracture of right pubis, initial encounter for closed fracture (principal); M16.11 Unilateral primary osteoarthritis, right hip; W19.XXXA Unspecified fall, initial encounter; Z96.642 Presence of left artificial hip joint
CPT/HCPCS: 72170; 73502

== ENCOUNTER → 2020-10-28 | Outpatient (CLI) | payer MEDICARE ==
[2020-10-28 15:28] LABS: CLARITY,URINE CLOUDY; COLOR,URINE YELLOW; GLUCOSE, URINE (UA) NEGATIVE (NEGATIVE); KETONES,URINE NEGATIVE (NEGATIVE); NITRITE,URINE NEGATIVE (NEGATIVE); PROTEIN,URINE NEGATIVE (NEGATIVE)
[2020-10-28 15:29] LABS: BACTERIA,URINE LARGE /HPF; BILIRUBIN,URINE NEGATIVE (NEGATIVE); LEUKOCYTE ESTERASE ,URINE 2+ (NEGATIVE)
== END ==
LOC: LAB FS 15:04
PROVIDERS: ATTEND Family Medicine
DX: R35.0 Frequency of micturition (principal)
CPT/HCPCS: 81000; 87077; 87088; 87186

== ENCOUNTER → 2020-11-11 | Outpatient (CLI) | payer MEDICARE ==
--- NOTE | 2020-11-11 16:05 | Diagnostic Imaging Report ---
INDICATION: Left hip arthroplasty. COMPARISON: 10/21/2020. EXAMINATION: Two views of the pelvis and left hip. FINDINGS: Well-seated arthroplasty without evidence of fracture. No unexpected radiopaque foreign body. IMPRESSION: 1. Well-seated left hip arthroplasty. 2. Not mentioned above, stable moderate degenerative joint disease of right hip. Dictated by: Dictated on workstation # [id number]
== END ==
LOC: RAD FS 13:02
PROVIDERS: ATTEND Nurse Practitioner
DX: M16.11 Unilateral primary osteoarthritis, right hip (principal); Z96.642 Presence of left artificial hip joint
CPT/HCPCS: 72170

== ENCOUNTER → 2020-11-16 | Outpatient (CLI) | payer MEDICARE ==
[2020-11-16 10:10] LABS: BILIRUBIN,URINE NEGATIVE (NEGATIVE); CLARITY,URINE SL CLOUDY; COLOR,URINE YELLOW; GLUCOSE, URINE (UA) NEGATIVE (NEGATIVE); KETONES,URINE NEGATIVE (NEGATIVE); LEUKOCYTE ESTERASE ,URINE 1+ (NEGATIVE); NITRITE,URINE NEGATIVE (NEGATIVE); PROTEIN,URINE NEGATIVE (NEGATIVE)
[2020-11-16 10:33] LABS: BACTERIA,URINE MODERATE /HPF
== END ==
LOC: PVFS 09:54
PROVIDERS: ATTEND Family Medicine
DX: M54.50 Low back pain, unspecified (principal); R10.2 Pelvic and perineal pain
CPT/HCPCS: 81000; 87088

== ENCOUNTER → 2020-11-24 | Outpatient (CLI) | payer MEDICARE | LOC: LABNPT 14:38 | PROVIDERS: ATTEND Family Medicine | DX: N39.0 Urinary tract infection, site not specified (principal) | CPT/HCPCS: 87088 ==

== ENCOUNTER → 2021-05-20 | Outpatient (CLI) | payer MEDICARE ==
[~2021-05-20] MED LIST changes: +POTA-179 PO; -POTA20TA15 PO
--- NOTE | 2021-05-20 15:36 | Diagnostic Imaging Report ---
PROCEDURE: MR imaging of the brain without contrast. TECHNIQUE: Multiplanar, multisequence MR imaging of the brain was performed without contrast. INDICATION: Headaches and dizziness. COMPARISON: No prior studies are available for comparison. Ventricles and sulci are appropriate for the patient's age. There is mild periventricular white matter changes noted consistent with chronic microvascular ischemia. No diffusion restriction is seen. Normal expected flow-voids within the carotid siphons are seen. No acute intra-axial or extra-axial hemorrhage is detected. Corpus callosum is unremarkable. Sella and parasellar structures are unremarkable. IMPRESSION: Chronic and senescent changes. No acute intracranial process is detected. Dictated by: Dictated on workstation # [id number]
== END ==
LOC: RAD 14:00
PROVIDERS: ATTEND Internal Medicine Addiction Medicine
DX: G43.719 Chronic migraine without aura, intractable, without status migrainosus (principal)
CPT/HCPCS: 70551

== ENCOUNTER 2021-07-18 04:37 | Emergency (ER) | payer MEDICARE ==
--- NOTE | 2021-07-18 04:47 | ED General ---
General Chief Complaint: Dizziness/Syncope Stated Complaint: DIZZINESS/FALL History of Present Illness Date Seen by Provider: Jul 18, 2021 Time Seen by Provider: 04:47 Initial Comments 89-year-old female with PMH of chronic dizziness, [facility] with complaints of a fall while she was going to the bathroom in the morning. Patient states that she did not hit her head but slid along the wall to the floor because she felt her knee buckling. Denies hard head strike, LOC, chest pain, palpitations, shortness of breath, headache, neck stiffness or neck pain. Patient states she has not been drinking much water in the past couple weeks, only 1 to 2 glasses of water a day and a lot of coffee. Allergies and Home Medications Allergies Coded Allergies: Iodinated Contrast Media (Verified Allergy, Unknown, 10/19/19) Penicillins (Verified Allergy, Unknown, 10/19/19) morphine (Verified Allergy, Unknown, 10/19/19) Patient Home Medication List Home Medication List Reviewed: Yes Aspirin (Aspirin) 81 Mg Tab.chew, 81 MG PO BID, (Reported) Entered as Reported by: BRANDI FARMER on 10/20/19 1422 Atorvastatin Calcium (Atorvastatin Calcium) 40 Mg Tablet, 40 MG PO DAILY, (Reported) Entered as Reported by: JEN OCAMPO on 10/20/19 1245 Calcium Carbonate (Calcium Carbonate) 200 Mg Tab.chew, 200 MG PO PRN, (Reported) Entered as Reported by: BRANDI FARMER on 10/20/19 1433 Diazepam (Diazepam) 5 Mg Tablet, 5 MG PO TID PRN for VERTIGO, (Reported) Entered as Reported by: JEN OCAMPO on 10/20/19 1245 Dicyclomine HCl (Dicyclomine HCl) 10 Mg Capsule, 10 MG PO TID PRN for CRAMPS, (Reported) Entered as Reported by: JEN OCAMPO on 10/20/19 1245 Hydrochlorothiazide (Hydrochlorothiazide) 50 Mg Tablet, 75 MG PO DAILY, (Reported) Entered as Reported by: BRANDI FARMER on 10/20/19 1442 Hydrocodone/Acetaminophen (Hydrocodone-Acetamin 5-325 mg) 1 Each Tablet, 1 TAB PO Q8H PRN for PAIN-MODERATE (5-7) Prescribed by: IWONA DIANE on 10/08/20 0221 Magnesium Amino Acid Chelate (Magnesium) 100 Mg Tablet, 200 MG PO DAILY, (Reported) Entered as Reported by: BRANDI FARMER on 10/20/19 1433 Nystatin (Nystatin) 100,000 Unit/1 Ml Oral.susp, 5 ML PO QID, (Reported) Entered as Reported by: FLORI PEREZ on 10/21/19 1151 Omeprazole (Omeprazole) 20 Mg Capsule.dr, 20 MG PO DAILY, (Reported) Entered as Reported by: BRANDI FARMER on 10/20/19 1457 Ondansetron HCl (Zofran) 4 Mg Tab, 4 MG PO DAILY PRN for NAUSEA/VOMITING, (Reported) Entered as Reported by: BRANDI FARMER on 10/20/19 145 Oxybutynin Chloride (Oxybutynin Chloride) 5 Mg Tablet, 5 MG PO TID PRN for INCONTIENCE, (Reported) Entered as Reported by: JEN OCAMPO on 10/20/19 1245 Potassium Chloride (Potassium Chloride) 20 Meq Tab.er.prt, 20 MEQ PO DAILY, (Reported) Entered as Reported by: BRANDI FARMER on 10/20/19 145 Sumatriptan Succinate (Sumatriptan Succinate) 50 Mg Tablet, 50 MG PO UD PRN for MIGRAINE, (Reported) Entered as Reported by: JEN OCAMPO on 10/20/19 1245 Zinc Amino Acid Chelate (Zinc) 50 Mg Tablet, 50 MG PO DAILY, (Reported) Entered as Reported by: BRANDI FARMER on 10/20/19 1457 Review of Systems Review of Systems Constitutional: dizziness EENTM: no symptoms reported Respiratory: no symptoms reported Cardiovascular: no symptoms reported Gastrointestinal: no symptoms reported Genitourinary: no symptoms reported Musculoskeletal: no symptoms reported Skin: no symptoms reported Psychiatric/Neurological: No Symptoms Reported Hematologic/Lymphatic: No Symptoms Reported Immunological/Allergic: no symptoms reported Past Zxrzolo-Xpnstd-Qkgyhh Hx Past Medical History Cardiac: Yes High Cholesterol, Hypertension Neurological: No Genitourinary: Yes (dysphagia) Gastrointestinal: Yes (benign neoplasm of colon) Arthritis Endocrine: No HEENT: No Integumentary: Yes (yeast under breasts) Physical Exam Vital Signs Vital Signs - First Documented 07/18/21 04:40 Pulse 80 Resp 18 B/P (MAP) 153/74 (100) Pulse Ox 95 O2 Delivery Room Air Capillary Refill : Height, Weight, BMI Height: '" Weight: lbs. oz. kg; 12.00 BMI Method: General Appearance: No Apparent Distress HEENT: PERRL/EOMI, TMs Normal Neck: Full Range of Motion, Non Tender, Supple Respiratory: Chest Non Tender, Lungs Clear, Normal Breath Sounds Cardiovascular: Regular Rate, Rhythm, No Edema Gastrointestinal: Normal Bowel Sounds, Non Tender, Soft Back: Normal Inspection, No Vertebral Tenderness Neurologic/Psychiatric: Alert, Oriented x3, No Motor/Sensory Deficits, Normal Mood/Affect, wallboard worker II-XII Norm as Tested Skin: Normal Color Progress/Results/Core Measures Suspected Sepsis SIRS Temperature: Pulse: Respiratory Rate: Laboratory Tests 07/18/21 04:44: White Blood Count 9.7 Blood Pressure / Mean: Laboratory Tests 07/18/21 04:44: Creatinine 1.50H, INR Comment 0.9, Platelet Count 225, Total Bilirubin 0.6 Results/Orders Lab Results Laboratory Tests Test 07/18/21 04:44 07/18/21 05:20 Range/Units White Blood Count 9.7 4.3-11.0 10^3/uL Red Blood Count 5.07 3.80-5.11 10^6/uL Hemoglobin 14.1 11.5-16.0 g/dL Hematocrit 43 35-52 % Mean Corpuscular Volume 84 80-99 fL Mean Corpuscular Hemoglobin 28 25-34 pg Mean Corpuscular Hemoglobin Concent 33 32-36 g/dL Red Cell Distribution Width 12.5 10.0-14.5 % Platelet Count 225 130-400 10^3/uL Mean Platelet Volume 11.5 9.0-12.2 fL Immature Granulocyte % (Auto) 0 % Neutrophils (%) (Auto) 52 42-75 % Lymphocytes (%) (Auto) 39 12-44 % Monocytes (%) (Auto) 7 0-12 % Eosinophils (%) (Auto) 2 0-10 % Basophils (%) (Auto) 1 0-10 % Neutrophils # (Auto) 5.1 1.8-7.8 10^3/uL Lymphocytes # (Auto) 3.8 1.0-4.0 10^3/uL Monocytes # (Auto) 0.7 0.0-1.0 10^3/uL Eosinophils # (Auto) 0.2 0.0-0.3 10^3/uL Basophils # (Auto) 0.1 0.0-0.1 10^3/uL Immature Granulocyte # (Auto) 0.0 0.0-0.1 10^3/uL Prothrombin Time 12.5 12.2-14.7 SEC INR Comment 0.9 0.8-1.4 Activated Partial Thromboplast Time 26 24-35 SEC Sodium Level 135 135-145 MMOL/L Potassium Level 3.3 L 3.6-5.0 MMOL/L Chloride Level 96 L 98-107 MMOL/L Carbon Dioxide Level 25 21-32 MMOL/L Anion Gap 14 5-14 MMOL/L Blood Urea Nitrogen 23 H 7-18 MG/DL Creatinine 1.50 H 0.60-1.30 MG/DL Estimat Glomerular Filtration Rate 33 BUN/Creatinine Ratio 15 Glucose Level 128 H 70-105 MG/DL Calcium Level 9.1 8.5-10.1 MG/DL Corrected Calcium 9.2 8.5-10.1 MG/DL Magnesium Level 1.6 1.6-2.4 MG/DL Total Bilirubin 0.6 0.1-1.0 MG/DL Aspartate Amino Transf (AST/SGOT) 26 5-34 U/L Alanine Aminotransferase (ALT/SGPT) 16 0-55 U/L Alkaline Phosphatase 119 40-136 U/L Troponin I < 0.30 <0.30 NG/ML Pro-B-Type Natriuretic Peptide 112.4 H <75.0 PG/ML Total Protein 7.4 6.4-8.2 GM/DL Albumin 3.9 3.2-4.5 GM/DL Urine Color YELLOW Urine Clarity CLEAR Urine pH 6.5 5-9 Urine Specific Dalton 1.020 1.016-1.022 Urine Protein TRACE H NEGATIVE Urine Glucose (UA) NEGATIVE NEGATIVE Urine Ketones NEGATIVE NEGATIVE Urine Nitrite POSITIVE H NEGATIVE Urine Bilirubin 1+ H NEGATIVE Urine Urobilinogen 1.0 < = 1.0 MG/DL Urine Leukocyte Esterase 2+ H NEGATIVE Urine RBC (Auto) NEGATIVE NEGATIVE Urine RBC NONE /HPF Urine WBC 10-25 H /HPF Urine Squamous Epithelial Cells 2-5 /HPF Urine Crystals NONE /LPF Urine Bacteria LARGE H /HPF Urine Casts NONE /LPF Urine Mucus NEGATIVE /LPF Urine Culture Indicated YES My Orders Orders - KATLYN MOORE MD Cbc With Automated Diff (07/18/21 04:48) Comprehensive Metabolic Panel (07/18/21 04:48) Magnesium (07/18/21 04:48) Protime With Inr (07/18/21 04:48) Partial Thromboplastin Time (07/18/21 04:48) Ua Culture If Indicated (07/18/21 04:48) Probnp Fs (07/18/21 04:48) Troponin I Fs (07/18/21 04:48) Ct Head Wo-R/O Stroke (07/18/21 04:48) Chest 1 View Ap/Pa Only (07/18/21 04:50) Ct Cervical Spine Wo (07/18/21 05:08) Ondansetron Injection (Zofran Injectio (07/18/21 05:30) Urine Culture (07/18/21 05:20) Ceftriaxone 1 Gm Pre-Mix (Rocephin 1 Gm (07/18/21 06:00) Ed Iv/Invasive Line Start (07/18/21 06:25) Normal Saline 500ml Iv (07/18/21 06:30) Potassium Chloride (Tablet) (K Dur Table (07/18/21 06:30) Medications Given in ED Current Medications Medications Dose Ordered Sig/Uriel Route Start Time Stop Time Status Last Admin Dose Admin Ceftriaxone Sodium/Dextrose 50 ml @ 100 mls/hr ONCE ONCE IV 07/18/21 06:00 07/18/21 06:29 07/18/21 06:04 100 MLS/HR Ondansetron HCl 4 mg ONCE ONCE IVP 07/18/21 05:30 07/18/21 05:31 DC 07/18/21 05:23 4 MG Vital Signs/I&O 07/18/21 07/18/21 04:40 06:23 Pulse 80 67 Resp 18 16 B/P (MAP) 153/74 (100) 116/54 Pulse Ox 95 94 O2 Delivery Room Air Room Air Capillary Refill : Progress Note : Progress Note 1. DIZZINESS/ NEAR SYNCOPE: - CT HEAD: unremarkable - CT CERVICAL SPINE: chronic degenerative changes - CXR: unremarkable - Labs unremarkable -Patient is already on meclizine -Follow-up with PCP -The patient was seen in the ED, and treated appropriately to presentation at a specific point in time. Patient is informed that there is a possibility that disease and illness can evolve and change in acuity rapidly or slowly after patient is discharged from the ER. Precautionary advice given to the patient for immediate return to ER if symptoms worsen or do not resolve, and to seek emergency care sooner rather than later. Pt also advised on the importance of PCP follow up and compliance with management and follow up plan with PCP and/or specialist, as this is part of the management plan. Pt verbally expressed understanding. 2. UTI & MILD DEHYDRATION - UA is positive for leukocyte esterase, WBC, bacteria -Ceftriaxone 1 g IV stat -NS IVF 500 mL bolus stat -Advised to drink more water -Prescription for cefpodoxime 200mg BID for 5 days 3. MILD HYPOKALEMIA: - s. K is 3.3 - Oral potassium 40mEq STAT in ER Diagnostic Imaging Diagonstic Imaging: Xray, CT Plain Films/CT/US/NM/MRI: chest, head Comments [facility] [place], [place] NAME: CORNELIUS SANDERS [facility] REC#: [id number] PT STATUS: REG ER : 1930 PHYSICIAN: KATLYN MOORE MD ADMIT DATE: 07/18/21/ER FS Draft Date of Exam:07/18/21 CT HEAD WO-R/O STROKE PROCEDURE: CT head wo r/o stroke. TECHNIQUE: Multiple contiguous axial images were obtained through the brain without the use of intravenous contrast. Auto Exposure Controls were utilized during the CT exam to meet ALARA standards for radiation dose reduction. INDICATION: Syncope. COMPARISON: 10/19/2019 CT HEAD: CT images of the head were obtained. FINDINGS: Ventricles and sulci are within normal limits for size. There is no intracranial hemorrhage identified. There is no abnormal mass effect or shift of midline structures. IMPRESSION: Unremarkable CT of the head. Dictated on workstation # [id number] Dict: 07/18/2127 Trans: 07/18/21 0531 [id number] Interpreted by: ZO CONLEY MD Electronically signed by: [facility] [place], [place] NAME: CORNELIUS SANDERS [facility] REC#: [id number] PT STATUS: REG ER : 1930 PHYSICIAN: KATLYN MOORE MD ADMIT DATE: 07/18/21/ER FS Draft Date of Exam:07/18/21 CHEST 1 VIEW AP/PA ONLY INDICATION: Near syncope AP view of the chest is obtained with comparison made to the study of 10/19/2019. Heart size and pulmonary vascularity are within normal limits. There is no pneumothorax or consolidation. Lungs are clear without significant pleural fluid. IMPRESSION: No acute abnormality or significant adverse change. Dictated on workstation # [id number] Dict: 07/18/21525 Trans: 07/18/21 0531 [facility] Interpreted by: ZO CONLEY MD Electronically signed by: [facility] [place], [place] NAME: CORNELIUS SANDERS [facility] REC#: [id number] PT STATUS: REG ER : 1930 PHYSICIAN: KATLYN MOORE MD ADMIT DATE: 07/18/21/ER FS Draft Date of Exam:07/18/21 CT CERVICAL SPINE WO PROCEDURE: CT cervical spine without contrast. TECHNIQUE: Multiple contiguous axial images were obtained through the cervical spine without the use of intravenous contrast. Sagittal and coronal reformations were then performed. Auto Exposure Controls were utilized during the CT exam to meet ALARA standards for radiation dose reduction. INDICATION: Dizziness, fall and neck pain. FINDINGS: There is reversal of cervical lordosis centered at the C4-C5 level with grade 1 anterolisthesis of C4 on C5. There is no evidence of an acute fracture. No paraspinous hematoma is identified. There is moderate narrowing of the C5-C6 and C6-C7 disc spaces indicating degenerative change. 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 Given the degree of degenerative changes is likely chronic in nature although clinical correlation is recommended. Otherwise, no acute abnormality is appreciated. Dictated on workstation # [id number] Dict: 07/18/2128 Trans: 07/18/21 0532 SA Interpreted by: ZO CONLEY MD Electronically signed by: Departure Impression Primary Impression: Acute cystitis Qualified Codes: N30.00 - Acute cystitis without hematuria Additional Impressions: Dehydration, mild Vertigo Hypokalemia Disposition: HOME, SELF-CARE Condition: Stable Departure-Patient Inst. Referrals: LOGAN HIGGINS MD (PCP/Family) Primary Care Physician Patient Instructions: Vertigo (a Type of Dizziness) (DC), Urinary Tract Infection, Adult (DC), Acute Cystitis (DC), Dehydration, Adult ED, Hypokalemia (DC) Add. Discharge Instructions: -Advised to drink more water -Prescription for cefpodoxime 200mg BID for 5 days All discharge instructions reviewed with patient and/or family. Voiced understanding. Scripts Cefpodoxime Proxetil (Cefpodoxime Proxetil) 200 Mg Tablet 200 MG PO BID for 5 Days, #10 TAB Prov: KATLYN MOORE MD 07/18/21 KATLYN MOORE MD Jul 18, 2021 04:47
[2021-07-18 04:59] LABS: BASOPHILS # (AUTO) 0.1 10^3/uL (0.0-0.1); BASOPHILS % (AUTO) 1 % (0-10); EOSINOPHILS # (AUTO) 0.2 10^3/uL (0.0-0.3); EOSINOPHILS % (AUTO) 2 % (0-10); HEMATOCRIT 43 % (35-52); HEMOGLOBIN 14.1 g/dL (11.5-16.0); LYMPHOCYTES # (AUTO) 3.8 10^3/uL (1.0-4.0); LYMPHOCYTES % (AUTO) 39 % (12-44); MEAN CORPUSCULAR HEMOGLOBIN 28 pg (25-34); MEAN CORPUSCULAR HGB CONC 33 g/dL (32-36); MEAN CORPUSCULAR VOLUME 84 fL (80-99); MEAN PLATELET VOLUME 11.5 fL (9.0-12.2); MONOCYTES # (AUTO) 0.7 10^3/uL (0.0-1.0); MONOCYTES % (AUTO) 7 % (0-12); NEUTROPHILS # (AUTO) 5.1 10^3/uL (1.8-7.8); NEUTROPHILS % (AUTO) 52 % (42-75); PLATELET COUNT 225 10^3/uL (130-400); WHITE BLOOD COUNT 9.7 10^3/uL (4.3-11.0)
[2021-07-18 05:06] LABS: INR 0.9 (0.8-1.4); PROTHROMBIN TIME PATIENT 12.5 SEC (12.2-14.7)
[2021-07-18 05:24] LABS: CLARITY,URINE CLEAR; COLOR,URINE YELLOW; GLUCOSE, URINE (UA) NEGATIVE (NEGATIVE); KETONES,URINE NEGATIVE (NEGATIVE); LEUKOCYTE ESTERASE ,URINE 2+ (NEGATIVE); NITRITE,URINE POSITIVE (NEGATIVE); PH,URINE 6.5 (5-9); PROTEIN,URINE TRACE (NEGATIVE)
[2021-07-18] MEDS ORDERED: ONDANSETRON 4 MG/2 ML (SDV) Z0FRAN IVP ONE (05:30)
--- NOTE | 2021-07-18 05:31 | Diagnostic Imaging Report ---
PROCEDURE: CT head wo r/o stroke. TECHNIQUE: Multiple contiguous axial images were obtained through the brain without the use of intravenous contrast. Auto Exposure Controls were utilized during the CT exam to meet ALARA standards for radiation dose reduction. INDICATION: Syncope. COMPARISON: 10/19/2019 CT HEAD: CT images of the head were obtained. FINDINGS: Ventricles and sulci are within normal limits for size. There is no intracranial hemorrhage identified. There is no abnormal mass effect or shift of midline structures. There are advanced degenerative findings in the temporal mandibular joints. IMPRESSION: Unremarkable CT of the head. Dictated by: Dictated on workstation # [id number]
--- NOTE | 2021-07-18 05:31 | Diagnostic Imaging Report ---
INDICATION: Near syncope AP view of the chest is obtained with comparison made to the study of 10/19/2019. Heart size and pulmonary vascularity are within normal limits. There is no pneumothorax or consolidation. Lungs are clear without significant pleural fluid. IMPRESSION: No acute abnormality or significant adverse change. Dictated by: Dictated on workstation # [id number]
--- NOTE | 2021-07-18 05:32 | Diagnostic Imaging Report ---
PROCEDURE: CT cervical spine without contrast. TECHNIQUE: Multiple contiguous axial images were obtained through the cervical spine without the use of intravenous contrast. Sagittal and coronal reformations were then performed. Auto Exposure Controls were utilized during the CT exam to meet ALARA standards for radiation dose reduction. INDICATION: Dizziness, fall and neck pain. FINDINGS: There is reversal of cervical lordosis centered at the C4-C5 level with grade 1 anterolisthesis of C4 on C5. There is no evidence of an acute fracture. No paraspinous hematoma is identified. There is moderate narrowing of the C5-C6 and C6-C7 disc spaces indicating degenerative change. 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 Given the degree of degenerative changes is likely chronic in nature although clinical correlation is recommended. Otherwise, no acute abnormality is appreciated. Dictated by: Dictated on workstation # [id number]
[2021-07-18 05:36] LABS: BACTERIA,URINE LARGE /HPF
[2021-07-18 05:37] LABS: BILIRUBIN,URINE 1+ (NEGATIVE)
[2021-07-18] MEDS ORDERED: cefTRIAXone 1 GM PRE-MIX 50 ML IV ONE (06:00)
[2021-07-18 06:04] LABS: BUN/CREATININE RATIO 15; CALCIUM 9.1 MG/DL (8.5-10.1); CARBON DIOXIDE 25 MMOL/L (21-32); CHLORIDE 96 MMOL/L (98-107); GFR ESTIMATED 33; GLUCOSE 128 MG/DL (70-105); POTASSIUM 3.3 MMOL/L (3.6-5.0); SODIUM 135 MMOL/L (135-145)
[2021-07-18 06:05] LABS: ALANINE AMINOTRANSFERASE 16 U/L (0-55); ALBUMIN 3.9 GM/DL (3.2-4.5); ALKALINE PHOSPHATASE 119 U/L (40-136); BILIRUBIN,TOTAL 0.6 MG/DL (0.1-1.0); MAGNESIUM 1.6 MG/DL (1.6-2.4); TOTAL PROTEIN 7.4 GM/DL (6.4-8.2)
[2021-07-18 06:23] VITALS: BP 116/54
[2021-07-18] MEDS ORDERED: KCL 20 MEQ TAB (K-DUR) PO ONE (06:30)
[2021-07-18] MEDS ORDERED: NS IV 500 ML 500 ML IV ONE (06:30)
[2021-07-18] MEDS ORDERED: CEFP200T2 PO (06:37)
[2021-07-18] MEDS ORDERED: LOPERAMIDE 2 MG (IMODIUM) TABLET ONE (06:37)
[2021-07-18] MEDS ORDERED: LOPERAMIDE 2 MG (IMODIUM) TABLET PO ONE ×2 (06:45)
== END 2021-07-18 08:04 | disposition home or self-care (01) ==
LOC: EDUNIT# 04:37 → ER FS 04:40
DX: N30.00 Acute cystitis without hematuria (principal); R42 Dizziness and giddiness; E86.0 Dehydration; E87.6 Hypokalemia
CPT/HCPCS: 36415; 70450; 71045; 72125; 80053; 81000; 83735; 83880; 84484; 85025; 85610; 85730; 87077; 87088; 87186

== ENCOUNTER → 2021-07-25 | Outpatient (CLI) | payer MEDICARE ==
[~2021-07-25] MED LIST changes: +CEFP200T2 PO
[2021-07-25 15:58] LABS: CALCIUM 9.3 MG/DL (8.5-10.1); CREATININE SERUM 1.37 MG/DL (0.60-1.30)
--- NOTE | 2021-07-25 15:58 | Diagnostic Imaging Report ---
Indication: Left foot injury. Time of Exam: 3:20 PM 3 views of left foot were obtained. Comminuted fracture at the base of the proximal phalanx of the great toe. Fracture line does extend to the articular surface of the MTP joint. Remaining phalanges are intact. Metatarsals are intact. Midfoot and hindfoot are unremarkable. Impression: Intra-articular fracture at the base of the proximal phalanx, great toe. Dictated by: Dictated on workstation # [id number]
== END ==
LOC: RAD FS 15:04
PROVIDERS: ATTEND Family Medicine
DX: S92.412A Displaced fracture of proximal phalanx of left great toe, initial encounter for closed fracture (principal); H81.13 Benign paroxysmal vertigo, bilateral; E78.5 Hyperlipidemia, unspecified; N17.9 Acute kidney failure, unspecified
CPT/HCPCS: 36415; 73630; 80048

== ENCOUNTER → 2021-08-03 | Outpatient (CLI) | payer MEDICARE ==
[2021-08-03 11:36] LABS: BILIRUBIN,URINE NEGATIVE (NEGATIVE); CLARITY,URINE CLEAR; COLOR,URINE YELLOW; GLUCOSE, URINE (UA) NEGATIVE (NEGATIVE); KETONES,URINE NEGATIVE (NEGATIVE); LEUKOCYTE ESTERASE ,URINE 1+ (NEGATIVE); NITRITE,URINE NEGATIVE (NEGATIVE); PROTEIN,URINE NEGATIVE (NEGATIVE)
[2021-08-03 11:41] LABS: RBC,URINE RARE /HPF
[2021-08-03 11:42] LABS: BACTERIA,URINE TRACE /HPF
== END ==
LOC: LAB FS 11:22
PROVIDERS: ATTEND Family Medicine
DX: R35.0 Frequency of micturition (principal)
CPT/HCPCS: 81000

== ENCOUNTER 2021-09-17 05:55 | Emergency (ER) | payer MEDICARE ==
--- NOTE | 2021-09-17 05:59 | ED Lower Extremity ---
General Stated Complaint: ANKLE FRACTURE History of Present Illness Date Seen by Provider: Sep 17, 2021 Time Seen by Provider: 05:59 Initial Comments 89-year-old female presents with ankle fracture. Patient reports that she got up to go the bathroom and her left leg gave out and she fell. She has obvious deformity to the right ankle. She reports that this happened just prior to arrival. No other systemic complaints. Allergies and Home Medications Allergies Coded Allergies: Iodinated Contrast Media (Verified Allergy, Unknown, 10/19/19) Penicillins (Verified Allergy, Unknown, 10/19/19) morphine (Verified Allergy, Unknown, 10/19/19) Patient Home Medication List Home Medication List Reviewed: Yes Aspirin (Aspirin) 81 Mg Tab.chew, 81 MG PO BID, (Reported) Entered as Reported by: BRANDI FARMER on 10/20/19 1422 Atorvastatin Calcium (Atorvastatin Calcium) 40 Mg Tablet, 40 MG PO DAILY, (Reported) Entered as Reported by: JEN OCAMPO on 10/20/19 1245 Calcium Carbonate (Calcium Carbonate) 200 Mg Tab.chew, 200 MG PO PRN, (Reported) Entered as Reported by: BRANDI FARMER on 10/20/19 1433 Cefpodoxime Proxetil (Cefpodoxime Proxetil) 200 Mg Tablet, 200 MG PO BID Prescribed by: KATLYN MOORE MD on 07/18/21 0637 Diazepam (Diazepam) 5 Mg Tablet, 5 MG PO TID PRN for VERTIGO, (Reported) Entered as Reported by: JEN OCAMPO on 10/20/19 1245 Dicyclomine HCl (Dicyclomine HCl) 10 Mg Capsule, 10 MG PO TID PRN for CRAMPS, (Reported) Entered as Reported by: JEN OCAMPO on 10/20/19 1245 Hydrochlorothiazide (Hydrochlorothiazide) 50 Mg Tablet, 75 MG PO DAILY, (Reported) Entered as Reported by: BRANDI FARMER on 10/20/19 1442 Hydrocodone/Acetaminophen (Hydrocodone-Acetamin 5-325 mg) 1 Each Tablet, 1 TAB PO Q8H PRN for PAIN-MODERATE (5-7) Prescribed by: IWONA DIANE on 10/08/20 0221 Magnesium Amino Acid Chelate (Magnesium) 100 Mg Tablet, 200 MG PO DAILY, (Reported) Entered as Reported by: BRANDI FARMER on 10/20/19 1433 Nystatin (Nystatin) 100,000 Unit/1 Ml Oral.susp, 5 ML PO QID, (Reported) Entered as Reported by: FLORI PEREZ on 10/21/19 1151 Omeprazole (Omeprazole) 20 Mg Capsule.dr, 20 MG PO DAILY, (Reported) Entered as Reported by: BRANDI FARMER on 10/20/19 1457 Ondansetron HCl (Zofran) 4 Mg Tab, 4 MG PO DAILY PRN for NAUSEA/VOMITING, (Reported) Entered as Reported by: BRANDI FARMER on 10/20/19 145 Oxybutynin Chloride (Oxybutynin Chloride) 5 Mg Tablet, 5 MG PO TID PRN for INCONTIENCE, (Reported) Entered as Reported by: JEN OCAMPO on 10/20/19 1245 Potassium Chloride (Potassium Chloride) 20 Meq Tab.er.prt, 20 MEQ PO DAILY, (Reported) Entered as Reported by: BRANDI FARMER on 10/20/19 145 Sumatriptan Succinate (Sumatriptan Succinate) 50 Mg Tablet, 50 MG PO UD PRN for MIGRAINE, (Reported) Entered as Reported by: JEN OCAMPO on 10/20/19 1245 Zinc Amino Acid Chelate (Zinc) 50 Mg Tablet, 50 MG PO DAILY, (Reported) Entered as Reported by: BRANDI FARMER on 10/20/19 145 Review of Systems Constitutional: No chills, No fever EENTM: no symptoms reported Respiratory: no symptoms reported Cardiovascular: no symptoms reported Gastrointestinal: no symptoms reported Genitourinary: no symptoms reported Musculoskeletal: see HPI Skin: see HPI Psychiatric/Neurological: No Symptoms Reported Past [id number]-[id number] Hx Past Medical History Cardiac: Yes High Cholesterol, Hypertension Neurological: No Genitourinary: Yes (dysphagia) Gastrointestinal: Yes (benign neoplasm of colon) Arthritis Endocrine: No HEENT: No Integumentary: Yes (yeast under breasts) Physical Exam Vital Signs Vital Signs - First Documented 09/17/21 05:55 Temp 36.3 Pulse 96 Resp 18 B/P (MAP) 115/66 (82) Pulse Ox 98 O2 Delivery Room Air Capillary Refill : Height, Weight, BMI Height: '" Weight: lbs. oz. kg; 12.00 BMI Method: General Appearance: no apparent distress HEENT: PERRL/EOMI Neck: full range of motion, supple Cardiovascular: normal peripheral pulses, regular rate, rhythm Respiratory: lungs clear, normal breath sounds Gastrointestinal: non tender, soft Hips: bilateral hip non-tender, bilateral hip normal inspection Legs: bilateral leg non-tender, bilateral leg normal inspection Knees: bilateral knee non-tender, bilateral knee normal inspection Ankles: right ankle deformity, right ankle limited range of motion, right ankle other (Obvious deformity and dislocation right ankle) Procedures/Interventions Splinting and Joint Reduction : Location: Right ankle Pre-Proc Neuro Vasc Exam: normal Post-Proc Neuro Vasc Exam: normal Reduction Attempts: 1 Pre-Procedure NV Exam: Yes post joint reduction film: Fracture initially reduced, it does not stay in place in splint Immobilizers: Other (Posterior and sugar-tong) Hand-Made Type: orthoglass Progress/Results/Core Measures Results/Orders My Orders Orders - IWONA DIANE DO Ankle 3 View Right (09/17/21 05:59) Ankle 2 View Right (09/17/21 06:16) Fentanyl Inj (Sublimaze Injection) (09/17/21 06:40) Ondansetron Injection (Zofran Injectio (09/17/21 06:45) Ketorolac Injection (Toradol Injection) (09/17/21 07:00) Ketorolac Injection (Toradol Injection) (09/17/21 06:49) Medications Given in ED Vital Signs/I&O 09/17/21 09/17/21 05:55 09:54 Temp 36.3 36.3 Pulse 96 85 Resp 18 18 B/P (MAP) 115/66 (82) 123/65 Pulse Ox 98 98 O2 Delivery Room Air Room Air Progress Progress Note : Progress Note Patient with right ankle fracture dislocation. Initial reduction was successful however after splinting it would not remain in place. Patient to be transferred ER to ER to [facility] accepting Dr Green. Patient was transferred in stable condition. Diagnostic Imaging Diagonstic Imaging: Xray Plain Films/CT/US/NM/MRI: ankle Comments Date of Exam:09/17/21 ANKLE 3 VIEW RIGHT EXAMINATION: Right ankle radiographs, 3 views. COMPARISON: None. HISTORY: 89-year-old female, right ankle pain. Injury. FINDINGS: There is a comminuted, displaced, and abnormally angulated fracture of the distal fibular diaphysis with fracture proximal to the level of the tibial plafond. The distal fracture fragment is angled laterally by approximately 44 degrees. There is also a transversely oriented significantly displaced fracture of the base of the medial malleolus with the medial malleolar fracture fragment being medially displaced by approximately 2.8 cm. There is also a fracture fragment projecting superior to the talus most likely relating to a displaced posterior malleolar fracture. The distal tibia is medially dislocated relative to the talus. The lateral aspect of the distal tibia is directly abutting the medial talar dome. There is an oblique mildly displaced fracture of the first metatarsal at the level of the proximal metaphysis. IMPRESSION: 1. Significantly displaced trimalleolar fracture at the level of the right ankle. 2. The distal tibia is medially dislocated relative to the talus. 3. Mildly displaced oblique fracture of the proximal metaphysis of the first metatarsal. Reviewed: Reviewed by Me, Reviewed/Discussed Diagonstic Imaging: Xray Plain Films/CT/US/NM/MRI: ankle Comments Date of Exam:09/17/21 ANKLE 2 VIEW RIGHT EXAMINATION: Right ankle radiographs, 2 views. COMPARISON: Right ankle radiographs September 17, 2021 at 0605 hours. HISTORY: 89-year-old female, status post reduction. FINDINGS: There is a redemonstrated comminuted, displaced, and laterally angulated fracture of the distal fibula above the level of the tibial plafond. There is persistent lateral displacement of the distal fracture fragment which is laterally angulated by 16 degrees which is an improvement since the comparison study. There is also a redemonstrated significantly displaced medial malleolar fracture with the fracture fragment being medially displaced by 1.7 cm which is less displaced compared to prior exam. There is also redemonstrated abnormal medial positioning of the distal tibia relative to the talus although it is not frankly dislocated currently. The distal tibia is currently 50% subluxed medially relative to the talus. There is likely a posterior malleolar fracture again noted. There has been placement of overlying cast material which does obscure bone and trabecular detail. There is an oblique mildly displaced first metatarsal fracture again noted. IMPRESSION: 1. Redemonstrated comminuted and displaced trimalleolar fracture at the level of the right ankle with persistent displacement although improved since the comparison study. 2. The distal tibia is medially subluxed relative to the talus by approximately 50% which is improved since the comparison exam although abnormally aligned. 3. Redemonstrated mildly displaced fracture of the first metatarsal. Dedicated 3 view right foot radiograph exam is recommended for further evaluation of the foot. Reviewed: Reviewed by Me, Reviewed/Discussed Departure Impression Primary Impression: Ankle fracture Qualified Codes: S82.891A - Other fracture of right lower leg, initial encounter for closed fracture Disposition: XFER [facility] Condition: Stable Transfer Transfer Reason: Patient preference Time Spoke to Accepting Phy: 07:03 Transfer Facility: [facility] Method of Transfer: EMS Departure-Patient Inst. Referrals: LOGAN HIGGINS MD (PCP/Family) Primary Care Physician IWONA DIANE DO Sep 17, 2021 05:59
[2021-09-17] MEDS ORDERED: fentaNYL INJ 100 MCG/2 ML AMP IVP STA (06:40)
[2021-09-17] MEDS ORDERED: ONDANSETRON 4 MG/2 ML (SDV) Z0FRAN IVP ONE (06:45)
[2021-09-17] MEDS ORDERED: KETOROLAC 30 MG/ML VIAL ONE (06:49)
[2021-09-17] MEDS ORDERED: KETOROLAC 30 MG/ML VIAL IVP ONE (07:00)
--- NOTE | 2021-09-17 07:28 | Diagnostic Imaging Report ---
EXAMINATION: Right ankle radiographs, 3 views. COMPARISON: None. HISTORY: 89-year-old female, right ankle pain. Injury. FINDINGS: There is a comminuted, displaced, and abnormally angulated fracture of the distal fibular diaphysis with fracture proximal to the level of the tibial plafond. The distal fracture fragment is angled laterally by approximately 44 degrees. There is also a transversely oriented significantly displaced fracture of the base of the medial malleolus with the medial malleolar fracture fragment being medially displaced by approximately 2.8 cm. There is also a fracture fragment projecting superior to the talus most likely relating to a displaced posterior malleolar fracture. The distal tibia is medially dislocated relative to the talus. The lateral aspect of the distal tibia is directly abutting the medial talar dome. There is an oblique mildly displaced fracture of the first metatarsal at the level of the proximal metaphysis. IMPRESSION: 1. Significantly displaced trimalleolar fracture at the level of the right ankle. 2. The distal tibia is medially dislocated relative to the talus. 3. Mildly displaced oblique fracture of the proximal metaphysis of the first metatarsal. Dictated by: Dictated on workstation # [id number]
--- NOTE | 2021-09-17 07:32 | Diagnostic Imaging Report ---
EXAMINATION: Right ankle radiographs, 2 views. COMPARISON: Right ankle radiographs September 17, 2021 at 0605 hours. HISTORY: 89-year-old female, status post reduction. FINDINGS: There is a redemonstrated comminuted, displaced, and laterally angulated fracture of the distal fibula above the level of the tibial plafond. There is persistent lateral displacement of the distal fracture fragment which is laterally angulated by 16 degrees which is an improvement since the comparison study. There is also a redemonstrated significantly displaced medial malleolar fracture with the fracture fragment being medially displaced by 1.7 cm which is less displaced compared to prior exam. There is also redemonstrated abnormal medial positioning of the distal tibia relative to the talus although it is not frankly dislocated currently. The distal tibia is currently 50% subluxed medially relative to the talus. There is likely a posterior malleolar fracture again noted. There has been placement of overlying cast material which does obscure bone and trabecular detail. There is an oblique mildly displaced first metatarsal fracture again noted. IMPRESSION: 1. Redemonstrated comminuted and displaced trimalleolar fracture at the level of the right ankle with persistent displacement although improved since the comparison study. 2. The distal tibia is medially subluxed relative to the talus by approximately 50% which is improved since the comparison exam although abnormally aligned. 3. Redemonstrated mildly displaced fracture of the first metatarsal. Dedicated 3 view right foot radiograph exam is recommended for further evaluation of the foot. Dictated by: Dictated on workstation # [id number]
[2021-09-17 09:54] VITALS: BP 123/65
== END 2021-09-17 09:54 | disposition short-term general hospital (02) ==
LOC: EDUNIT# 05:55 → ER FS 05:57
DX: S82.891A Other fracture of right lower leg, initial encounter for closed fracture (principal); W18.30XA Fall on same level, unspecified, initial encounter; Y92.091 Bathroom in other non-institutional residence as the place of occurrence of the external cause
CPT/HCPCS: 29515; 73600; 73610

== ENCOUNTER → 2021-11-04 | Outpatient (CLI) | payer MEDICARE ==
[2021-11-04 14:39] LABS: BILIRUBIN,URINE 1+ (NEGATIVE); CLARITY,URINE CLEAR; COLOR,URINE YELLOW; GLUCOSE, URINE (UA) NEGATIVE (NEGATIVE); KETONES,URINE NEGATIVE (NEGATIVE); LEUKOCYTE ESTERASE ,URINE TRACE (NEGATIVE); NITRITE,URINE POSITIVE (NEGATIVE); PROTEIN,URINE 1+ (NEGATIVE)
[2021-11-04 14:50] LABS: BACTERIA,URINE LARGE /HPF; RBC,URINE 0-2 /HPF; WBC,URINE 25-50 /HPF
== END ==
LOC: LABNPT 14:33
PROVIDERS: ATTEND Family Medicine
DX: Z01.89 Encounter for other specified special examinations (principal)
CPT/HCPCS: 81000; 87077; 87088; 87186

== ENCOUNTER → 2021-11-15 | Outpatient (CLI) | payer MEDICARE ==
[2021-11-15 17:27] LABS: BILIRUBIN,URINE NEGATIVE (NEGATIVE); COLOR,URINE YELLOW; GLUCOSE, URINE (UA) NEGATIVE (NEGATIVE); KETONES,URINE NEGATIVE (NEGATIVE); LEUKOCYTE ESTERASE ,URINE 1+ (NEGATIVE); NITRITE,URINE NEGATIVE (NEGATIVE); PROTEIN,URINE NEGATIVE (NEGATIVE)
[2021-11-15 17:47] LABS: CLARITY,URINE SL CLOUDY
[2021-11-15 17:48] LABS: BACTERIA,URINE MODERATE /HPF; SQUAMOUS EPITHELIAL CELL,UR 25-50 /HPF
== END ==
LOC: PVFS 15:45
PROVIDERS: ATTEND Family Medicine
DX: N39.0 Urinary tract infection, site not specified (principal)
CPT/HCPCS: 81000; 87088

== ENCOUNTER → 2021-11-17 | Outpatient (CLI) | payer MEDICARE ==
[2021-11-17 15:27] LABS: BILIRUBIN,URINE NEGATIVE (NEGATIVE); CLARITY,URINE SL CLOUDY; COLOR,URINE YELLOW; GLUCOSE, URINE (UA) NEGATIVE (NEGATIVE); KETONES,URINE NEGATIVE (NEGATIVE); LEUKOCYTE ESTERASE ,URINE 1+ (NEGATIVE); NITRITE,URINE NEGATIVE (NEGATIVE); PROTEIN,URINE NEGATIVE (NEGATIVE)
[2021-11-17 15:47] LABS: BACTERIA,URINE LARGE /HPF; RBC,URINE 0-2 /HPF
== END ==
LOC: LAB FS 14:34
PROVIDERS: ATTEND Family Medicine
DX: R35.0 Frequency of micturition (principal)
CPT/HCPCS: 81000; 87088

== ENCOUNTER → 2022-05-25 | Outpatient (CLI) | payer MEDICARE ==
[2022-05-25 17:44] LABS: BILIRUBIN,URINE NEGATIVE (NEGATIVE); CLARITY,URINE CLEAR; COLOR,URINE YELLOW; GLUCOSE, URINE (UA) NEGATIVE (NEGATIVE); KETONES,URINE NEGATIVE (NEGATIVE); LEUKOCYTE ESTERASE ,URINE 3+ (NEGATIVE); NITRITE,URINE NEGATIVE (NEGATIVE); PH,URINE 6.5 (5-9); PROTEIN,URINE NEGATIVE (NEGATIVE)
[2022-05-25 17:52] LABS: BACTERIA,URINE FEW /HPF
== END ==
LOC: PVFS 16:54
PROVIDERS: ATTEND Family Medicine
DX: R30.0 Dysuria (principal)
CPT/HCPCS: 81000; 87077; 87088